=== PATIENT | female | born 1940 | race African-American/Black ===

== ENCOUNTER 2016-11-23 12:35 | Inpatient (IN) | payer MEDICARE, MEDICAID ==
[2016-11-23 13:53] LABS: ANION GAP 13 (5-19); BLOOD UREA NITROGEN 46 mg/dL (7-20); CALCIUM 9.2 mg/dL (8.4-10.2); CARBON DIOXIDE 28 mmol/L (22-30); CHLORIDE 101 mmol/L (98-107); CREATINE KINASE 75 U/L (30-135); CREATININE RESULT 2.27 mg/dL (0.52-1.25); GLUCOSE 190 mg/dL (75-110); POTASSIUM 3.3 mmol/L (3.6-5.0); SODIUM 142.3 mmol/L (137-145)
[2016-11-23 13:58] LABS: HEMATOCRIT 24.8 % (36.0-47.0); HEMOGLOBIN 8.2 g/dL (12.0-15.5); HGB HCT DIFFERENCE -0.2; MEAN CORPUSCULAR HEMOGLOBIN 27.3 pg (27.0-33.4); MEAN CORPUSCULAR HGB CONC 32.9 g/dL (32.0-36.0); MEAN CORPUSCULAR VOLUME 83 fl (80-97); RED BLOOD COUNT 2.99 10^6/uL (3.72-5.28); RED CELL DISTRIBUTION WIDTH 17.9 % (11.5-14.0); WHITE BLOOD COUNT 9.4 10^3/uL (4.0-10.5)
[2016-11-23 14:45] LABS: APPEARANCE,URINE CLEAR; BILIRUBIN,URINE NEGATIVE (NEGATIVE); GLUCOSE, URINE 50 mg/dL (NEGATIVE); KETONES,URINE NEGATIVE (NEGATIVE); LEUKOCYTE ESTERASE,URINE NEGATIVE (NEGATIVE); NITRITE,URINE NEGATIVE (NEGATIVE); PROTEIN,URINE >=500 mg/dL (NEGATIVE); URINE SPECIFIC GRAVITY 1.007; UROBILINOGEN,URINE NEGATIVE mg/dL (<2.0)
[2016-11-23] MEDS ORDERED: NORMAL SALINE 1000 ML 1,000 ML IV PRN (14:50)
[2016-11-23] MEDS ORDERED: (PENDING PHARMACY ID) (Tramadol Hcl/Acetaminophen [Ultracet 37.5 Mg/325 Mg Tablet] 1 TAB) PO PRN (15:32)
[2016-11-23] MEDS ORDERED: (PENDING PHARMACY ID) (Metoprolol Succinate [Toprol Xl 200 Mg Tablet] 200 MG) PO SCH (15:45)
[2016-11-23 15:51] LABS: PROTHROMBIN TIME 13.8 SEC (11.4-15.4)
[2016-11-23 15:52] LABS: PARTIAL THROMBOPLASTIN TIME 35.8 SEC (23.5-35.8)
[2016-11-23 15:59] LABS: LIPASE 483.2 U/L (23-300); MAGNESIUM 2.5 mg/dL (1.6-2.3); PHOSPHORUS 4.6 mg/dL (2.5-4.5)
[2016-11-23 16:12] LABS: CREATINE KINASE MB 0.27 ng/mL (<4.55); TROPONIN I 0.018 ng/mL
[2016-11-23] MEDS ORDERED: AMLODIPINE BESYLATE 10 MG TABLET PO ONE (16:30)
[2016-11-23] MEDS ORDERED: SERTRALINE HCL 50 MG TABLET PO ONE (16:30)
[2016-11-23] MEDS ORDERED: LANSOPRAZOLE 30 MG TAB.RAP.DR PO ONE (16:30)
[2016-11-23] MEDS ORDERED: INSULIN GLARGINE,HUM.REC.ANLOG 300 UNIT/3 ML INSULN.PEN SUBCUT ONE (16:30)
[2016-11-23] MEDS ORDERED: METOPROLOL SUCCINATE 50 MG TAB.SR.24H PO ONE (16:30)
[2016-11-23 16:43] LABS: THYROID STIMULATING HORMONE 1.7 uIU/mL (0.47-4.68)
[2016-11-23 16:54] LABS: URINE BARBITURATES SCREEN NEGATIVE; URINE METHADONE SCREEN NEGATIVE; URINE OPIATES LOW NEGATIVE; URINE PHENCYCLIDINE SCREEN NEGATIVE
[2016-11-23] MEDS: APIXABAN 2.5 MG TABLET PO SCH (17:38)
[2016-11-23] MEDS: NORMAL SALINE 1000 ML 1,000 ML IV PRN (17:39)
--- NOTE | 2016-11-23 18:19 | PDOC H&P ---
History of Present Illness Admission Date/PCP: 11/23/16 12:35 CAROL ANN ACHARYA MD History of Present Illness: CHACHO KHAN is a 76 year old female, She was admitted directly from home because of acute kidney injury. She had blood work yesterday, the serum creatinine was 2.31, the serum creatinine from 10/25/2016 was 2.01, the serum creatinine from 07/18/26 was 1.64 there was progressive decline in the estimated GFR. The estimated GFR from 07/18/2016 was 33,, the estimated GFR from 10/25/2016 was 26, the estimated GFR from 11/22/2016 was 22 because of the rapid decline in the kidney function she was admitted directly to evaluate out for acute kidney injury to rule out any prerenal component or any other condition that could be contributing to the rapid decline kidney function. She has a history of diabetes mellitus with nephropathy. She has other comorbid conditions including CVA, chronic atrial fibrillation. Past Medical History Cardiac Medical History: Reports: Atrial Fibrillation, Coronary Artery Disease, Hyperlipidema, Hypertension Neurological Medical History: Reports: Ischemic CVA Endocrine Medical History: Reports: Diabetes Mellitus Type 2 Psychiatric Medical History: Reports: Depression Past Surgical History Past Surgical History: Reports: Cardiac Catheterization - stent 2003 Denies: Hysterectomy, Pacemaker Social History Smoking Status: Former Smoker Frequency of Alcohol Use: None Hx Recreational Drug Use: No Hx Prescription Drug Abuse: No Family History Parental Family History Reviewed: Yes Children Family History Reviewed: Yes Sibling(s) Family History Reviewed.: Yes Medication/Allergy Home Medications: Apixaban [Eliquis 2.5 mg Tablet] 2.5 mg PO BID 11/23/16 Insulin Aspart [Novolog Flexpen] 8 units SUBCUT Q 11/23/16 Insulin Glargine,Hum.rec.anlog [Lantus Insulin 100 Unit/mL] 15 units SUBCUT QAM 11/23/16 Linaclotide [Linzess] 290 mcg PO DAILY 11/23/16 Pioglitazone HCl [Actos] 30 mg PO DAILY 11/23/16 RX: Amlodipine Besylate [Norvasc 10 mg Tablet] 10 mg PO DAILY 11/23/16 RX: Ergocalciferol (Vitamin D2) [Drisdol 50,000 unit (1.25MG) Capsule] 50,000 unit PO WE@1000 11/23/16 RX: Metoprolol Succinate [Toprol XL 200 mg Tablet] 200 mg PO DAILY 11/23/16 RX: Omeprazole 40 mg PO DAILY 11/23/16 RX: Pravastatin Sodium [Pravachol] 80 mg PO DAILY 11/23/16 RX: Sertraline HCl [Zoloft] 100 mg PO DAILY 11/23/16 Tramadol HCl/Acetaminophen [Ultracet 37.5 mg/325 mg Tablet] 1 tab PO Q6HP PRN Valsartan/Hydrochlorothiazide [Diovan Hct 320-25 mg Tablet] 1 tab PO DAILY 11/23 Allergies/Adverse Reactions: No Known Allergies Allergy (Unverified 04/01/11 18:04) Physical Exam Vital Signs: Temp Pulse Resp BP Pulse Ox 98.0 F 70 18 170/64 H 100 11/23/16 14:25 11/23/16 14:25 11/23/16 14:25 11/23/16 14:25 11/23/16 14:25 Intake & Output 11/22/16 11/23/16 11/24/16 06:59 06:59 06:59 Weight 59.2 kg General appearance: PRESENT: no acute distress Head exam: PRESENT: atraumatic, normocephalic Eye exam: PRESENT: conjunctiva pink, EOMI, PERRLA Ear exam: PRESENT: normal external ear exam Mouth exam: PRESENT: moist, tongue midline Neck exam: PRESENT: full ROM Cardiovascular exam: PRESENT: RRR, +S1, +S2 Vascular exam: PRESENT: normal capillary refill GI/Abdominal exam: PRESENT: normal bowel sounds, soft Rectal exam: PRESENT: deferred Neurological exam: PRESENT: alert, motor sensory deficit Psychiatric exam: PRESENT: appropriate affect, normal mood Skin exam: PRESENT: dry, intact, warm Results Laboratory Results: 11/23/16 13:27 11/23/16 13:27 11/23/16 11/23/16 11/23/16 13:27 13:27 13:27 WBC 9.4 RBC 2.99 L Hgb 8.2 L Hct 24.8 L MCV 83 MCH 27.3 MCHC 32.9 RDW 17.9 H Plt Count 265 Sodium 142.3 Potassium 3.3 L Chloride 101 Carbon Dioxide 28 Anion Gap 13 BUN 46 H Creatinine 2.27 H Est GFR ( Amer) 25 L Est GFR (Non-Af Amer) 21 L Glucose 190 H Calcium 9.2 Phosphorus 4.6 H Magnesium 2.5 H Ammonia Amylase 194 H Lipase 483.2 H TSH Free T4 Urine Color Urine Appearance Urine pH Ur Specific [place] Urine Protein Urine Glucose (UA) Urine Ketones Urine Blood Urine Nitrite Ur Leukocyte Esterase Urine WBC (Auto) Urine RBC (Auto) 11/23/16 11/23/16 11/23/16 13:27 14:26 16:33 WBC RBC Hgb Hct MCV MCH MCHC RDW Plt Count Sodium Potassium Chloride Carbon Dioxide Anion Gap BUN Creatinine Est GFR ( Amer) Est GFR (Non-Af Amer) Glucose Calcium Phosphorus Magnesium Ammonia < 8.7 L Amylase Lipase TSH 1.70 Free T4 1.60 Urine Color STRAW Urine Appearance CLEAR Urine pH 7.0 Ur Specific [place] 1.007 Urine Protein >=500 H Urine Glucose (UA) 50 H Urine Ketones NEGATIVE Urine Blood NEGATIVE Urine Nitrite NEGATIVE Ur Leukocyte Esterase NEGATIVE Urine WBC (Auto) 5 Urine RBC (Auto) 2 11/23/16 11/23/16 11/23/16 13:27 13:27 13:27 Creatine Kinase 75 Cancelled CK-MB (CK-2) 0.27 Troponin I 0.018 Assessment & Plan - Diagnosis (1) Acute kidney injury Is this a current diagnosis for this admission?: YesPlan: 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, there is rapid progressive decline of kidney function, she was admitted to rule out any potential etiology of acute kidney injury, she has significant proteinuria, we need to rule out paraproteinemia especially multiple myeloma (2) Chronic atrial fibrillation Is this a current diagnosis for this admission?: Yes (3) Diabetes mellitus Qualifiers: Diabetes mellitus type: type 2 Diabetes mellitus complication status: with kidney complications Diabetes mellitus complication detail: with chronic kidney disease Diabetes mellitus terminal makeup operator insulin use: with mcc use Chronic kidney disease stage: stage 4 (severe) Qualified Code(s): E11.22 - Type 2 diabetes mellitus with diabetic chronic kidney disease ; N18.4 - Chronic kidney disease, stage 4 (severe); Z79.4 - nursing home (current) use of insulin Is this a current diagnosis for this admission?: Yes
[2016-11-23 18:25] LABS: URINE CREATININE 39.1 mg/dL (15-278)
[2016-11-23 18:37] LABS: URINE PROTEIN 396.4 mg/dL (<12)
[2016-11-23 20:23] LABS: URINE POTASSIUM 13.3 mmol/L (22-164)
[2016-11-23] MEDS: INSULIN LISPRO 100 UNIT/ML 3 ML VIAL SUBCUT SCH (21:13)
[2016-11-23] MEDS: ATORVASTATIN CALCIUM 20 MG TABLET PO SCH (21:13)
[2016-11-23] MEDS ORDERED: INSULIN ASPART 8 UNIT SUBCUT SCH (22:00)
[2016-11-23 22:38] LABS: CREATINE KINASE MB 0.25 ng/mL (<4.55); TROPONIN I 0.022 ng/mL
[2016-11-24 04:23] LABS: ABSOLUTE BASOPHILS # (AUTO) 0.1 10^3/uL (0.0-0.2); ABSOLUTE EOSINOPHILS # (AUTO) 0.2 10^3/uL (0.0-0.6); ABSOLUTE LYMPHOCYTES (AUTO) 2.2 10^3/uL (0.5-4.7); ABSOLUTE MONOCYTES (AUTO) 0.6 10^3/uL (0.1-1.4); ABSOLUTE NEUT (AUTO) 5.3 10^3/uL (1.7-8.2); BASOPHILS % (AUTO) 0.7 % (0-2); EOSINOPHILS % (AUTO) 2.2 % (0-6); HEMATOCRIT 25.8 % (36.0-47.0); HEMOGLOBIN 8.4 g/dL (12.0-15.5); HGB HCT DIFFERENCE -0.6; LYMPHOCYTES % (AUTO) 26.4 % (13-45); MEAN CORPUSCULAR HEMOGLOBIN 27.4 pg (27.0-33.4); MEAN CORPUSCULAR HGB CONC 32.4 g/dL (32.0-36.0); MEAN CORPUSCULAR VOLUME 85 fl (80-97); MONOCYTES % (AUTO) 7.6 % (3-13); RED BLOOD COUNT 3.05 10^6/uL (3.72-5.28); RED CELL DISTRIBUTION WIDTH 17.5 % (11.5-14.0); SEGMENTED NEUTROPHILS % (AUTO) 63.1 % (42-78); WHITE BLOOD COUNT 8.4 10^3/uL (4.0-10.5)
[2016-11-24 04:38] LABS: ALANINE AMINOTRANSFERASE 24 U/L (9-52); ALBUMIN 3.4 g/dL (3.5-5.0); ALKALINE PHOSPHATASE 51 U/L (38-126); ANION GAP 13 (5-19); ASPARTATE AMINO TRANSFERASE 14 U/L (14-36); BILIRUBIN,DIRECT 0.3 mg/dL (0.0-0.4); BILIRUBIN,TOTAL 0.4 mg/dL (0.2-1.3); BLOOD UREA NITROGEN 38 mg/dL (7-20); CALCIUM 8.8 mg/dL (8.4-10.2); CARBON DIOXIDE 26 mmol/L (22-30); CHLORIDE 103 mmol/L (98-107); CREATINE KINASE 70 U/L (30-135); CREATININE RESULT 1.92 mg/dL (0.52-1.25); GLUCOSE 114 mg/dL (75-110); SODIUM 142.1 mmol/L (137-145); TOTAL PROTEIN 6.4 g/dL (6.3-8.2)
[2016-11-24 04:43] LABS: POTASSIUM 2.9 mmol/L (3.6-5.0)
[2016-11-24 04:48] LABS: CREATINE KINASE MB 0.33 ng/mL (<4.55); TROPONIN I 0.022 ng/mL
[2016-11-24] MEDS: POTASSIUM CHLORIDE 20 MEQ/15 ML UDCUP PO SCH ×2 (06:10→10:14)
[2016-11-24] MEDS: INSULIN GLARGINE,HUM.REC.ANLOG 300 UNIT/3 ML INSULN.PEN SUBCUT SCH (07:49)
[2016-11-24] MEDS: LANSOPRAZOLE 30 MG TAB.RAP.DR PO SCH (10:15)
[2016-11-24] MEDS: METOPROLOL SUCCINATE 50 MG TAB.SR.24H PO SCH (10:19)
[2016-11-24] MEDS: AMLODIPINE BESYLATE 10 MG TABLET PO SCH (10:20)
[2016-11-24] MEDS: APIXABAN 2.5 MG TABLET PO SCH ×2 (10:20→17:13)
[2016-11-24] MEDS: SERTRALINE HCL 50 MG TABLET PO SCH (10:21)
--- NOTE | 2016-11-24 12:29 | RADIOLOGY REPORT (SQ) ---
EXAM DESCRIPTION: U/S [employer] COMPLETED DATE/TIME: 11/24/2016 12:16 pm REASON FOR STUDY: ACUTE KIDNEY INJURY COMPARISON: None. TECHNIQUE: Dynamic and static grayscale images acquired of the kidneys and bladder and recorded on P ACS. Additional selected color Doppler and spectral images recorded. LIMITATIONS: None. FINDINGS: RIGHT KIDNEY: 9.2 cm. 1 cm cyst upper pole. No solid or suspicious masses. No hydro nephrosis. No calcifications. LEFT KIDNEY: 9.5 cm. Normal echogenicity. No solid or suspicious masses. No hydronephrosis. No calcifications. BLADDER: No masses. OTHER FINDINGS: No other significant finding. IMPRESSION: No hydronephrosis. No evidence of hematoma. TECHNICAL DOCUMENTATION: JOB ID: [id number] [employer]- All Rights Reserved
[2016-11-24] MEDS ORDERED: POTASSIUM CHLORIDE 20 MEQ/50 ML RTU IV ONE (14:15)
--- NOTE | 2016-11-24 20:17 | PDOC PROGRESS REPORT ---
Subjective Progress Note for:: 11/24/16 Subjective:: She was admitted yesterday because of acute kidney injury superimposed on chronic kidney disease, she has nephrotic range proteinuria, the urine protein electrophoresis is pending, consultation will be requested from nephrology, she is on IV fluid that is slight improvement with a serum creatinine suggesting a prerenal component, Physical Exam Vital Signs: Temp Pulse Resp BP Pulse Ox 98.5 F 65 16 159/69 H 95 11/24/16 15:04 11/24/16 19:00 11/24/16 15:04 11/24/16 15:04 11/24/16 15:04 Intake & Output 11/23/16 11/24/16 11/25/16 06:59 06:59 06:59 Intake Total 2218 2120 Balance 2218 2120 Weight 60.5 kg General appearance: PRESENT: no acute distress Eye exam: PRESENT: PERRLA Respiratory exam: PRESENT: clear to auscultation re Cardiovascular exam: PRESENT: +S1, +S2 GI/Abdominal exam: PRESENT: soft Neurological exam: PRESENT: alert, CN II-XII grossly intact Results Laboratory Results: 11/24/16 03:50 11/24/16 03:50 11/23/16 11/24/16 11/24/16 21:52 03:50 03:50 WBC 8.4 RBC 3.05 L Hgb 8.4 L Hct 25.8 L MCV 85 MCH 27.4 MCHC 32.4 RDW 17.5 H Plt Count 196 Seg Neutrophils % 63.1 Lymphocytes % 26.4 Monocytes % 7.6 Eosinophils % 2.2 Basophils % 0.7 Absolute Neutrophils 5.3 Absolute Lymphocytes 2.2 Absolute Monocytes 0.6 Absolute Eosinophils 0.2 Absolute Basophils 0.1 Sodium 142.1 Potassium 2.9 L* Chloride 103 Carbon Dioxide 26 Anion Gap 13 BUN 38 H Creatinine 1.92 H Est GFR ( Amer) 31 L Est GFR (Non-Af Amer) 26 L Glucose 114 H Calcium 8.8 Total Bilirubin 0.4 AST 14 ALT 24 Alkaline Phosphatase 51 Total Protein Cancelled 6.4 Albumin Cancelled 3.4 L 11/23/16 11/23/16 11/23/16 13:27 13:27 13:27 Creatine Kinase 75 Cancelled CK-MB (CK-2) 0.27 Troponin I 0.018 11/23/16 11/23/1611/24/17 21:40 21:52 03:50 Creatine Kinase 76 CK-MB (CK-2) 0.25 0.33 Troponin I 0.022 0.022 11/24/16 03:50 Creatine Kinase 70 CK-MB (CK-2) Troponin I Impressions: Renal Ultrasound 11/24/16 00:00 IMPRESSION: No hydronephrosis. No evidence of hematoma. Assessment & Plan - Diagnosis (1) Acute kidney injury Is this a current diagnosis for this admission?: Yes (2) Chronic atrial fibrillation Is this a current diagnosis for this admission?: Yes (3) Diabetes mellitus Qualifiers: Diabetes mellitus type: type 2 Diabetes mellitus complication status: with kidney complications Diabetes mellitus complication detail: with chronic kidney disease Diabetes mellitus regional intermodal truck driver insulin use: with regional intermodal truck driver use Chronic kidney disease stage: stage 4 (severe) Qualified Code(s): E11.22 - Type 2 diabetes mellitus with diabetic chronic kidney disease ; N18.1 - Chronic kidney disease, stage 1; Z79.4 - buttermaker (current) use of insulin Is this a current diagnosis for this admission?: Yes (4) Nephrotic range proteinuria Is this a current diagnosis for this admission?: YesPlan: She has nephrotic range proteinuria, the urine protein creatinine ratio is 10 this correlates to 10 g protein in 24 hours
[2016-11-24] MEDS: ATORVASTATIN CALCIUM 20 MG TABLET PO SCH (21:20)
[2016-11-24] MEDS: INSULIN LISPRO 100 UNIT/ML 3 ML VIAL SUBCUT SCH (21:22)
[2016-11-24 21:25] LABS: ALANINE AMINOTRANSFERASE 24 U/L (9-52); ALBUMIN 3.5 g/dL (3.5-5.0); ALKALINE PHOSPHATASE 69 U/L (38-126); ANION GAP 10 (5-19); ASPARTATE AMINO TRANSFERASE 14 U/L (14-36); BILIRUBIN,DIRECT 0.3 mg/dL (0.0-0.4); BILIRUBIN,TOTAL 0.3 mg/dL (0.2-1.3); BLOOD UREA NITROGEN 34 mg/dL (7-20); CALCIUM 8.6 mg/dL (8.4-10.2); CARBON DIOXIDE 27 mmol/L (22-30); CHLORIDE 106 mmol/L (98-107); CREATININE RESULT 1.84 mg/dL (0.52-1.25); GLUCOSE 191 mg/dL (75-110); POTASSIUM 3.4 mmol/L (3.6-5.0); SODIUM 142.5 mmol/L (137-145); TOTAL PROTEIN 6.7 g/dL (6.3-8.2)
[2016-11-25 04:29] LABS: ABSOLUTE EOSINOPHILS # (AUTO) 0.2 10^3/uL (0.0-0.6); ABSOLUTE MONOCYTES (AUTO) 0.8 10^3/uL (0.1-1.4); BASOPHILS % (AUTO) 0.4 % (0-2); EOSINOPHILS % (AUTO) 2.2 % (0-6); HEMATOCRIT 26.5 % (36.0-47.0); HEMOGLOBIN 8.9 g/dL (12.0-15.5); HGB HCT DIFFERENCE 0.2; LYMPHOCYTES % (AUTO) 22.2 % (13-45); MEAN CORPUSCULAR HEMOGLOBIN 27.9 pg (27.0-33.4); MEAN CORPUSCULAR HGB CONC 33.6 g/dL (32.0-36.0); MEAN CORPUSCULAR VOLUME 83 fl (80-97); MONOCYTES % (AUTO) 8.9 % (3-13); RED BLOOD COUNT 3.19 10^6/uL (3.72-5.28); RED CELL DISTRIBUTION WIDTH 17.7 % (11.5-14.0); SEGMENTED NEUTROPHILS % (AUTO) 66.3 % (42-78); WHITE BLOOD COUNT 9.1 10^3/uL (4.0-10.5)
[2016-11-25] MEDS: INSULIN GLARGINE,HUM.REC.ANLOG 300 UNIT/3 ML INSULN.PEN SUBCUT SCH (08:29)
[2016-11-25] MEDS ORDERED: CLONIDINE HCL 0.1 MG TABLET PO ONE (09:00)
[2016-11-25] MEDS: LANSOPRAZOLE 30 MG TAB.RAP.DR PO SCH (09:45)
[2016-11-25] MEDS: APIXABAN 2.5 MG TABLET PO SCH ×2 (09:45→18:08)
[2016-11-25] MEDS: SERTRALINE HCL 50 MG TABLET PO SCH (09:45)
[2016-11-25] MEDS: METOPROLOL SUCCINATE 50 MG TAB.SR.24H PO SCH (10:59)
[2016-11-25] MEDS: AMLODIPINE BESYLATE 10 MG TABLET PO SCH (11:00)
[2016-11-25] MEDS: NORMAL SALINE 1000 ML 1,000 ML IV PRN ×2 (11:28→22:26)
[2016-11-25] MEDS ORDERED: POTASSIUM CHLORIDE 20 MEQ/15 ML UDCUP PO ONE (11:45)
[2016-11-25 15:38] LABS: ALBUMIN UR 61.5 % (.); GAMMA GLOBULIN URINE 10.3 % (.); M-SPIKE % UR Not Observed % (Not Observed)
[2016-11-25] MEDS ORDERED: VALSARTAN 160 MG TABLET PO ONE (18:36)
[2016-11-25 19:16] LABS: ALANINE AMINOTRANSFERASE 16 U/L (9-52); ALBUMIN 3.8 g/dL (3.5-5.0); ALKALINE PHOSPHATASE 58 U/L (38-126); ANION GAP 12 (5-19); ASPARTATE AMINO TRANSFERASE 15 U/L (14-36); BILIRUBIN,DIRECT 0.3 mg/dL (0.0-0.4); BILIRUBIN,TOTAL 0.3 mg/dL (0.2-1.3); BLOOD UREA NITROGEN 26 mg/dL (7-20); CARBON DIOXIDE 26 mmol/L (22-30); CHLORIDE 107 mmol/L (98-107); CREATININE RESULT 1.53 mg/dL (0.52-1.25); GLUCOSE 95 mg/dL (75-110); POTASSIUM 3.6 mmol/L (3.6-5.0); SODIUM 144.5 mmol/L (137-145)
--- NOTE | 2016-11-25 20:40 | PDOC PROGRESS REPORT ---
Subjective Progress Note for:: 11/25/16 Subjective:: She was seen by the bedside, she was admitted because of acute kidney injury, she has nephrotic range proteinuria most likely due to diabetes nephropathy other potential etiology is being evaluated including multiple myeloma. The serum creatinine continues to improve with hydration suggesting a prerenal component, she is on IV fluid, she will continue the same management the blood pressure was elevated earlier today. Physical Exam Vital Signs: Temp Pulse Resp BP Pulse Ox 98.2 F 63 16 180/70 H 95 11/25/16 16:00 11/25/16 16:00 11/25/16 16:00 11/25/16 16:00 11/25/16 16:00 Intake & Output 11/24/16 11/25/16 11/26/16 06:59 06:59 06:59 Intake Total 2218 3420 1540 Output Total 250 Balance 2218 3170 1540 Weight 60.5 kg 61.5 kg General appearance: PRESENT: no acute distress Eye exam: PRESENT: PERRLA Respiratory exam: PRESENT: clear to auscultation re Cardiovascular exam: PRESENT: +S1, +S2 GI/Abdominal exam: PRESENT: soft Neurological exam: PRESENT: alert, CN II-XII grossly intact Results Laboratory Results: 11/25/16 04:10 11/25/16 18:47 11/24/16 11/25/16 11/25/16 20:50 04:10 18:47 WBC 9.1 RBC 3.19 L Hgb 8.9 L Hct 26.5 L MCV 83 MCH 27.9 MCHC 33.6 RDW 17.7 H Plt Count 232 Seg Neutrophils % 66.3 Lymphocytes % 22.2 Monocytes % 8.9 Eosinophils % 2.2 Basophils % 0.4 Absolute Neutrophils 6.0 Absolute Lymphocytes 2.0 Absolute Monocytes 0.8 Absolute Eosinophils 0.2 Absolute Basophils 0.0 Sodium 142.5 144.5 Potassium 3.4 L 3.6 Chloride 106 107 Carbon Dioxide 27 26 Anion Gap 10 12 BUN 34 H 26 H Creatinine 1.84 H 1.53 H Est GFR ( Amer) 32 L 40 L Est GFR (Non-Af Amer) 27 L 33 L Glucose 191 H 95 Calcium 8.6 9.0 Total Bilirubin 0.3 0.3 AST 14 15 ALT 24 16 Alkaline Phosphatase 69 58 Total Protein 6.7 7.0 Albumin 3.5 3.8 11/23/16 14:26 Clean Catch Midstream Urine Culture - Final Mixed Urogenital Aysha 11/23/16 11/23/16 11/23/16 13:27 13:27 13:27 Creatine Kinase 75 Cancelled CK-MB (CK-2) 0.27 Troponin I 0.018 11/23/16 11/23/16 11/24/16 21:40 21:52 03:50 Creatine Kinase 76 CK-MB (CK-2) 0.25 0.33 Troponin I 0.022 0.022 11/24/16 03:50 Creatine Kinase 70 CK-MB (CK-2) Troponin I Impressions: Renal Ultrasound 11/24/16 00:00 IMPRESSION: No hydronephrosis. No evidence of hematoma. Assessment & Plan - Diagnosis (1) Acute kidney injury Is this a current diagnosis for this admission?: Yes (2) Chronic atrial fibrillation Is this a current diagnosis for this admission?: Yes (3) Diabetes mellitus Qualifiers: Diabetes mellitus type: type 2 Diabetes mellitus complication status: with kidney complications Diabetes mellitus complication detail: with chronic kidney disease Diabetes mellitus shelter insulin use: with termite exterminator use Chronic kidney disease stage: stage 4 (severe) Qualified Code(s): E11.22 - Type 2 diabetes mellitus with diabetic chronic kidney disease ; N18.1 - Chronic kidney disease, stage 1; Z79.4 - extermination inspector (current) use of insulin Is this a current diagnosis for this admission?: Yes (4) Nephrotic range proteinuria Is this a current diagnosis for this admission?: Yes - Plan Summary Plan Summary: She will continue IV fluid therapy, serum creatinine continues to improve suggesting a prerenal component, she has nephropathy with nephrotic renal proteinuria partly due to diabetes mellitus, on admission the Diovan was held because of acute kidney injury ,in light of the significant proteinuria and elevated blood pressure the Diovan was started today. consultation also requested from nephrology
[2016-11-25] MEDS: VALSARTAN 160 MG TABLET PO SCH (22:13)
[2016-11-25] MEDS: INSULIN LISPRO 100 UNIT/ML 3 ML VIAL SUBCUT SCH (22:22)
[2016-11-25] MEDS: ATORVASTATIN CALCIUM 20 MG TABLET PO SCH (22:26)
[2016-11-26 06:16] LABS: ABSOLUTE BASOPHILS # (AUTO) 0.1 10^3/uL (0.0-0.2); ABSOLUTE EOSINOPHILS # (AUTO) 0.3 10^3/uL (0.0-0.6); ABSOLUTE LYMPHOCYTES (AUTO) 1.9 10^3/uL (0.5-4.7); ABSOLUTE MONOCYTES (AUTO) 0.8 10^3/uL (0.1-1.4); ABSOLUTE NEUT (AUTO) 7.5 10^3/uL (1.7-8.2); BASOPHILS % (AUTO) 1.1 % (0-2); EOSINOPHILS % (AUTO) 3.1 % (0-6); HEMATOCRIT 29.2 % (36.0-47.0); HEMOGLOBIN 9.5 g/dL (12.0-15.5); HGB HCT DIFFERENCE -0.7; LYMPHOCYTES % (AUTO) 17.7 % (13-45); MEAN CORPUSCULAR HGB CONC 32.5 g/dL (32.0-36.0); MEAN CORPUSCULAR VOLUME 83 fl (80-97); MONOCYTES % (AUTO) 7.3 % (3-13); RED BLOOD COUNT 3.52 10^6/uL (3.72-5.28); RED CELL DISTRIBUTION WIDTH 17.9 % (11.5-14.0); SEGMENTED NEUTROPHILS % (AUTO) 70.8 % (42-78); WHITE BLOOD COUNT 10.6 10^3/uL (4.0-10.5)
[2016-11-26 06:25] LABS: ALANINE AMINOTRANSFERASE 15 U/L (9-52); ALBUMIN 3.9 g/dL (3.5-5.0); ALKALINE PHOSPHATASE 58 U/L (38-126); ANION GAP 10 (5-19); ASPARTATE AMINO TRANSFERASE 18 U/L (14-36); BILIRUBIN,DIRECT 0.3 mg/dL (0.0-0.4); BILIRUBIN,TOTAL 0.3 mg/dL (0.2-1.3); BLOOD UREA NITROGEN 23 mg/dL (7-20); CALCIUM 8.9 mg/dL (8.4-10.2); CARBON DIOXIDE 27 mmol/L (22-30); CHLORIDE 109 mmol/L (98-107); CREATININE RESULT 1.41 mg/dL (0.52-1.25); GLUCOSE 88 mg/dL (75-110); POTASSIUM 3.3 mmol/L (3.6-5.0); SODIUM 145.7 mmol/L (137-145); TOTAL PROTEIN 7.4 g/dL (6.3-8.2)
[2016-11-26] MEDS: CLONIDINE HCL 0.1 MG TABLET PO PRN (08:04)
[2016-11-26] MEDS: NORMAL SALINE 1000 ML 1,000 ML IV PRN ×2 (08:08→19:09)
[2016-11-26] MEDS: INSULIN GLARGINE,HUM.REC.ANLOG 300 UNIT/3 ML INSULN.PEN SUBCUT SCH (09:09)
--- NOTE | 2016-11-26 10:08 | PDOC PROGRESS REPORT ---
Subjective Progress Note for:: 11/26/16 Subjective:: No chest pain or difficulty with breathing. There was recurrent severely elevated blood pressure this morning necessitating administration of Clonidine. No nausea or vomiting. No abdominal pain. No headache or dizziness. Physical Exam Vital Signs: Temp Pulse Resp BP Pulse Ox 97.9 F 68 12 212/78 H 99 11/26/16 07:31 11/26/16 07:31 11/26/16 07:31 11/26/16 07:31 11/26/16 07:31 Intake & Output 11/25/16 11/26/16 11/27/16 06:59 06:59 06:59 Intake Total 3420 1540 Output Total 250 Balance 3170 1540 Weight 61.5 kg 62.5 kg General appearance: PRESENT: no acute distress, cooperative Head exam: PRESENT: atraumatic, normocephalic Eye exam: PRESENT: conjunctiva pink, EOMI, PERRLA. ABSENT: scleral icterus Respiratory exam: PRESENT: clear to auscultation er Cardiovascular exam: PRESENT: RRR, +S1, +S2 GI/Abdominal exam: PRESENT: normal bowel sounds, soft. ABSENT: distended, guarding, mass, organolmegaly, rebound, tenderness Extremities exam: ABSENT: pedal edema Musculoskeletal exam: PRESENT: normal inspection Neurological exam: PRESENT: alert, CN II-XII grossly intact, motor sensory deficit Psychiatric exam: PRESENT: appropriate affect, normal mood. ABSENT: homicidal ideation, suicidal ideation Skin exam: PRESENT: dry, intact, warm. ABSENT: cyanosis, rash Results Laboratory Results: 11/26/16 06:02 11/26/16 06:02 11/25/16 11/26/16 11/26/16 18:47 06:02 06:02 WBC 10.6 H RBC 3.52 L Hgb 9.5 L Hct 29.2 L MCV 83 MCH 27.0 MCHC 32.5 RDW 17.9 H Plt Count 246 Seg Neutrophils % 70.8 Lymphocytes % 17.7 Monocytes % 7.3 Eosinophils % 3.1 Basophils % 1.1 Absolute Neutrophils 7.5 Absolute Lymphocytes 1.9 Absolute Monocytes 0.8 Absolute Eosinophils 0.3 Absolute Basophils 0.1 Sodium 144.5 145.7 H Potassium 3.6 3.3 L Chloride 107 109 H Carbon Dioxide 26 27 Anion Gap 12 10 BUN 26 H 23 H Creatinine 1.53 H 1.41 H Est GFR ( Amer) 40 L 44 L Est GFR (Non-Af Amer) 33 L 36 L Glucose 95 88 Calcium 9.0 8.9 Total Bilirubin 0.3 0.3 AST 15 18 ALT 16 15 Alkaline Phosphatase 58 58 Total Protein 7.0 7.4 Albumin 3.8 3.9 11/23/16 14:26 Clean Catch Midstream Urine Culture - Final Mixed Urogenital Aysha 11/23/16 11/23/16 11/23/16 13:27 13:27 13:27 Creatine Kinase 75 Cancelled CK-MB (CK-2) 0.27 Troponin I 0.018 11/23/16 11/23/16 11/24/16 21:40 21:52 03:50 Creatine Kinase 76 CK-MB (CK-2) 0.25 0.33 Troponin I 0.022 0.022 11/24/16 03:50 Creatine Kinase 70 CK-MB (CK-2) Troponin I Impressions: Renal Ultrasound 11/24/16 00:00 IMPRESSION: No hydronephrosis. No evidence of hematoma. Assessment & Plan - Diagnosis (1) Acute kidney injury Is this a current diagnosis for this admission?: YesPlan: Continue gentle IV Hydration in view of her elevated blood pressure. Follow up on pending labs. (2) Hypertension, uncontrolled Plan: Maintain on current anti HTN medication management. Already max out on Diovan, Toprol XL and Norvasc. Will start on Clonidine 0.1 mg p.o q12 hours and increase as necessary to achieve sbp < 140 and dbp < 90mmHg. Post Clonidine BP was 184/68. (3) Chronic atrial fibrillation Is this a current diagnosis for this admission?: YesPlan: Continue current anticoagulation therapy on Eliquis and rate control with Toprol XL (4) Diabetes mellitus Qualifiers: Diabetes mellitus type: type 2 Diabetes mellitus complication status: with kidney complications Diabetes mellitus complication detail: with chronic kidney disease Diabetes mellitus middle or intermediate school principal insulin use: with middle or intermediate school principal use Chronic kidney disease stage: stage 4 (severe) Qualified Code(s): E11.22 - Type 2 diabetes mellitus with diabetic chronic kidney disease ; N18.1 - Chronic kidney disease, stage 1; Z79.4 - longterm (current) use of insulin Is this a current diagnosis for this admission?: YesPlan: Continue current mediation management. (5) Nephrotic range proteinuria Is this a current diagnosis for this admission?: YesPlan: Continue current medication management. Follow up on nephrology consultation request. - Time Time Spent with patient: 25-34 minutes Medications reviewed and adjusted accordingly: Yes Anticipated discharge: Home Within: Other - Inpatient Certification Based on my medical assessment, after consideration of the patient's comorbidities, presenting symptoms, or acuity I expect that the services needed warrant INPATIENT care.: Yes I certify that my determination is in accordance with my understanding of Medicare's requirements for reasonable and necessary INPATIENT services [42 CFR 412.3e].: Yes Medical Necessity: Need Close Monitoring Due to Risk of Patient Decompensation, Need For Continuous Telemetry Monitoring, Risk of Complication if Not Cared For in Hospital Post Hospital Care: D/C Campus Administrator Documentation - Plan Summary Plan Summary: See covering attending orders.
[2016-11-26] MEDS: VALSARTAN 160 MG TABLET PO SCH ×2 (10:09→21:18)
[2016-11-26] MEDS: METOPROLOL SUCCINATE 50 MG TAB.SR.24H PO SCH (10:10)
[2016-11-26] MEDS: AMLODIPINE BESYLATE 10 MG TABLET PO SCH (10:10)
[2016-11-26] MEDS: SERTRALINE HCL 50 MG TABLET PO SCH (10:10)
[2016-11-26] MEDS: LANSOPRAZOLE 30 MG TAB.RAP.DR PO SCH (10:10)
[2016-11-26] MEDS: APIXABAN 2.5 MG TABLET PO SCH ×2 (10:10→17:56)
[2016-11-26] MEDS ORDERED: CLONIDINE HCL 0.1 MG TABLET PO ONE (17:45)
[2016-11-26] MEDS: ATORVASTATIN CALCIUM 20 MG TABLET PO SCH (21:18)
[2016-11-26] MEDS: INSULIN LISPRO 100 UNIT/ML 3 ML VIAL SUBCUT SCH (21:18)
[2016-11-27] MEDS: CLONIDINE HCL 0.1 MG TABLET PO PRN (00:01)
[2016-11-27] MEDS ORDERED: CLONIDINE HCL 0.1 MG TABLET PO ONE (05:00)
[2016-11-27] MEDS: NORMAL SALINE 1000 ML 1,000 ML IV PRN (06:30)
[2016-11-27] MEDS: VALSARTAN 160 MG TABLET PO SCH ×2 (06:31→21:11)
[2016-11-27] MEDS: METOPROLOL SUCCINATE 50 MG TAB.SR.24H PO SCH (06:32)
[2016-11-27] MEDS: AMLODIPINE BESYLATE 10 MG TABLET PO SCH (06:32)
[2016-11-27] MEDS ORDERED: AMLODIPINE BESYLATE 10 MG TABLET PO ONE (07:00)
[2016-11-27] MEDS ORDERED: METOPROLOL SUCCINATE 50 MG TAB.SR.24H PO ONE (07:00)
[2016-11-27] MEDS ORDERED: VALSARTAN 160 MG TABLET PO ONE (07:00)
[2016-11-27] MEDS: INSULIN GLARGINE,HUM.REC.ANLOG 300 UNIT/3 ML INSULN.PEN SUBCUT SCH (08:06)
[2016-11-27] MEDS ORDERED: CLONIDINE HCL 0.2 MG TABLET PO ONE (09:00)
[2016-11-27] MEDS: APIXABAN 2.5 MG TABLET PO SCH ×2 (09:02→18:38)
[2016-11-27] MEDS: SERTRALINE HCL 50 MG TABLET PO SCH (09:02)
[2016-11-27] MEDS: LANSOPRAZOLE 30 MG TAB.RAP.DR PO SCH (09:02)
--- NOTE | 2016-11-27 12:06 | PDOC PROGRESS REPORT ---
Subjective Progress Note for:: 11/27/16 Subjective:: No chest pain or difficulty with breathing. Her severely elevated blood pressure remain a concern with need for intermittent usage of clonidine since last clinical evaluation. She denied any headache or dizziness. She reported persistently elevated blood pressure at home prior to admission. No chest pain or difficulty with her breathing. Physical Exam Vital Signs: Temp Pulse Resp BP Pulse Ox 97.7 F 57 L 12 128/53 H 100 11/27/16 07:34 11/27/16 10:25 11/27/16 07:34 11/27/16 10:25 11/27/16 07:34 Intake & Output 11/26/16 11/27/16 11/28/16 06:59 06:59 06:59 Intake Total 1540 3120 Balance 1540 3120 Weight 62.5 kg 63.5 kg Physical Exam: General appearance: PRESENT: no acute distress, cooperative Head exam: PRESENT: atraumatic, normocephalic Eye exam: PRESENT: conjunctiva pink, EOMI, PERRLA. ABSENT: scleral icterus Respiratory exam: PRESENT: clear to auscultation re Cardiovascular exam: PRESENT: RRR, +S1, +S2 GI/Abdominal exam: PRESENT: normal bowel sounds, soft. ABSENT: distended, guarding, mass, organomegaly, rebound, tenderness Extremities exam: ABSENT: pedal edema Musculoskeletal exam: PRESENT: normal inspection Neurological exam: PRESENT: alert, CN II-XII grossly intact, motor sensory deficit with right hemiplegia. Psychiatric exam: PRESENT: appropriate affect, normal mood. ABSENT: homicidal ideation, suicidal ideation Skin exam: PRESENT: dry, intact, warm. ABSENT: cyanosis, rash Results Laboratory Results: 11/26/16 06:02 11/26/16 06:02 11/23/16 11/23/16 11/23/16 13:27 13:27 13:27 Creatine Kinase 75 Cancelled CK-MB (CK-2) 0.27 Troponin I 0.018 11/23/16 11/23/16 11/24/16 21:40 21:52 03:50 Creatine Kinase 76 CK-MB (CK-2) 0.25 0.33 Troponin I 0.022 0.022 11/24/16 03:50 Creatine Kinase 70 CK-MB (CK-2) Troponin I Impressions: Renal Ultrasound 11/24/16 00:00 IMPRESSION: No hydronephrosis. No evidence of hematoma. Assessment & Plan - Diagnosis (1) Acute kidney injury Is this a current diagnosis for this admission?: Yes (3) Chronic atrial fibrillation Is this a current diagnosis for this admission?: Yes (4) Diabetes mellitus Qualifiers: Diabetes mellitus type: type 2 Diabetes mellitus complication status: with kidney complications Diabetes mellitus complication detail: with chronic kidney disease Diabetes mellitus penitentiary insulin use: with intermediate designer use Chronic kidney disease stage: stage 4 (severe) Qualified Code(s): E11.22 - Type 2 diabetes mellitus with diabetic chronic kidney disease ; N18.1 - Chronic kidney disease, stage 1; Z79.4 - termite exterminator helper (current) use of insulin Is this a current diagnosis for this admission?: Yes (5) Nephrotic range proteinuria Is this a current diagnosis for this admission?: Yes - Time Time Spent with patient: 25-34 minutes Medications reviewed and adjusted accordingly: Yes Anticipated discharge: Home with Homehealth Within: Other - Inpatient Certification Based on my medical assessment, after consideration of the patient's comorbidities, presenting symptoms, or acuity I expect that the services needed warrant INPATIENT care.: Yes I certify that my determination is in accordance with my understanding of Medicare's requirements for reasonable and necessary INPATIENT services [42 CFR 412.3e].: Yes Medical Necessity: Need Close Monitoring Due to Risk of Patient Decompensation, Need For IV Fluids, Need For Continuous Telemetry Monitoring, Need for IV Antibiotics, Risk of Complication if Not Cared For in Hospital Post Hospital Care: D/C Cruise Coordinator Documentation - Plan Summary Plan Summary: Continue current anti HTN medication management. Start on Clonidine 0.2 mg po q12h hours and maintain on 0.1 mg po [id number] prn for sbp > 140mmHg. Obtain BMP, magnesium, and CBC. Heplock IV access.
[2016-11-27 13:27] LABS: ABSOLUTE BASOPHILS # (AUTO) 0.1 10^3/uL (0.0-0.2); ABSOLUTE EOSINOPHILS # (AUTO) 0.2 10^3/uL (0.0-0.6); ABSOLUTE LYMPHOCYTES (AUTO) 1.8 10^3/uL (0.5-4.7); ABSOLUTE MONOCYTES (AUTO) 0.5 10^3/uL (0.1-1.4); ABSOLUTE NEUT (AUTO) 5.9 10^3/uL (1.7-8.2); BASOPHILS % (AUTO) 0.9 % (0-2); EOSINOPHILS % (AUTO) 2.6 % (0-6); HEMOGLOBIN 8.2 g/dL (12.0-15.5); HGB HCT DIFFERENCE -0.4; LYMPHOCYTES % (AUTO) 21.1 % (13-45); MEAN CORPUSCULAR HEMOGLOBIN 27.8 pg (27.0-33.4); MEAN CORPUSCULAR HGB CONC 32.9 g/dL (32.0-36.0); MEAN CORPUSCULAR VOLUME 84 fl (80-97); MONOCYTES % (AUTO) 6.2 % (3-13); RED BLOOD COUNT 2.96 10^6/uL (3.72-5.28); RED CELL DISTRIBUTION WIDTH 17.1 % (11.5-14.0); SEGMENTED NEUTROPHILS % (AUTO) 69.2 % (42-78); WHITE BLOOD COUNT 8.5 10^3/uL (4.0-10.5)
[2016-11-27 13:39] LABS: ANION GAP 9 (5-19); BLOOD UREA NITROGEN 23 mg/dL (7-20); CALCIUM 8.7 mg/dL (8.4-10.2); CARBON DIOXIDE 24 mmol/L (22-30); CHLORIDE 109 mmol/L (98-107); CREATININE RESULT 1.52 mg/dL (0.52-1.25); GLUCOSE 133 mg/dL (75-110); MAGNESIUM 1.7 mg/dL (1.6-2.3); POTASSIUM 3.6 mmol/L (3.6-5.0); SODIUM 141.5 mmol/L (137-145)
[2016-11-27] MEDS: ATORVASTATIN CALCIUM 20 MG TABLET PO SCH (21:11)
[2016-11-27] MEDS: INSULIN LISPRO 100 UNIT/ML 3 ML VIAL SUBCUT SCH (21:11)
[2016-11-27] MEDS: CLONIDINE HCL 0.2 MG TABLET PO SCH (21:11)
[2016-11-28] MEDS: CLONIDINE HCL 0.1 MG TABLET PO PRN (04:41)
[2016-11-28] MEDS ORDERED: DEXTROSE 40% GEL 15 GM TUBE X 2 PO PRN (09:20)
[2016-11-28] MEDS ORDERED: DEXTROSE 40% GEL 15 GM TUBE PO PRN (09:20)
[2016-11-28] MEDS ORDERED: DEXTROSE 50%-WATER SYRINGE 25 GM/50 ML DOSE IV PRN (09:20)
[2016-11-28] MEDS ORDERED: GLUCAGON,HUMAN RECOMB 1 MG INJ IM PRN (09:20)
[2016-11-28] MEDS ORDERED: DEXTROSE 50%-WATER SYRINGE 12.5 GM/25 ML DOSE IV PRN (09:20)
[2016-11-28] MEDS: SERTRALINE HCL 50 MG TABLET PO SCH (09:30)
[2016-11-28] MEDS: AMLODIPINE BESYLATE 10 MG TABLET PO SCH (09:30)
[2016-11-28] MEDS: VALSARTAN 160 MG TABLET PO SCH ×2 (09:30→21:33)
[2016-11-28] MEDS: CLONIDINE HCL 0.2 MG TABLET PO SCH ×2 (09:30→21:34)
[2016-11-28] MEDS: LANSOPRAZOLE 30 MG TAB.RAP.DR PO SCH (09:31)
[2016-11-28] MEDS: INSULIN GLARGINE,HUM.REC.ANLOG 300 UNIT/3 ML INSULN.PEN SUBCUT SCH (09:31)
[2016-11-28] MEDS: METOPROLOL SUCCINATE 50 MG TAB.SR.24H PO SCH (09:31)
[2016-11-28] MEDS: APIXABAN 2.5 MG TABLET PO SCH ×2 (09:31→17:30)
[2016-11-28] MEDS ORDERED: INSULIN LISPRO 100 UNIT/ML 3 ML VIAL SUBCUT PRN (09:54)
[2016-11-28 14:39] LABS: IMMUNOGLOBULIN A 344 mg/dL (64-422); IMMUNOGLOBULIN G 876 mg/dL (700-1600)
[2016-11-28 14:39] LABS: ALBUMIN 3 3.6 g/dL (2.9-4.4); ALPHA-1-GLOBULIN 0.2 g/dL (0.0-0.4); BETA GLOBULIN 1.4 g/dL (0.7-1.3); GLOBULIN TTL 3.4 g/dL (2.2-3.9); IMMUNOGLOBULIN A 374 mg/dL (64-422); IMMUNOGLOBULIN G 930 mg/dL (700-1600); IMMUNOGLOBULIN M 90 mg/dL (26-217); MONOCLONAL-SPIKE Not Observed g/dL (Not Observed)
[2016-11-28 15:21] LABS: IMMUNOGLOBULIN M 83 mg/dL (26-217)
[2016-11-28 15:38] LABS: ALPHA-1-GLOBULIN 2 0.2 g/dL (0.0-0.4); GAMMA GLOBULIN 0.9 g/dL (0.4-1.8); PROTEIN TOTAL SERUM 6.1 g/dL (6.0-8.5)
[2016-11-28] MEDS ORDERED: INSULIN LISPRO 100 UNIT/ML 3 ML VIAL SUBCUT SCH (16:00)
[2016-11-28 19:16] LABS: ALANINE AMINOTRANSFERASE 17 U/L (9-52); ALBUMIN 3.6 g/dL (3.5-5.0); ALKALINE PHOSPHATASE 67 U/L (38-126); ANION GAP 12 (5-19); ASPARTATE AMINO TRANSFERASE 15 U/L (14-36); BILIRUBIN,DIRECT 0.3 mg/dL (0.0-0.4); BILIRUBIN,TOTAL 0.3 mg/dL (0.2-1.3); BLOOD UREA NITROGEN 29 mg/dL (7-20); CARBON DIOXIDE 24 mmol/L (22-30); CHLORIDE 105 mmol/L (98-107); CREATININE RESULT 1.71 mg/dL (0.52-1.25); GLUCOSE 144 mg/dL (75-110); POTASSIUM 3.4 mmol/L (3.6-5.0); SODIUM 140.7 mmol/L (137-145); TOTAL PROTEIN 6.8 g/dL (6.3-8.2)
[2016-11-28] MEDS ORDERED: NA PHOS,M-B/NA PHOS,DI-BA (ADULT) 133 ML ENEMA PR ONE (19:30)
--- NOTE | 2016-11-28 20:53 | PDOC PROGRESS REPORT ---
Subjective Progress Note for:: 11/28/16 Subjective:: She was seen by the bedside she has diabetic nephropathy the protein electrophoresis was negative for M protein, she has nephrotic range proteinuria , she has had severely elevated blood pressure over the weekend and she required multiple medication to achieve reasonable control of blood pressure. The blood pressure is elevated today I discussed her case with family members the challenge for this patient is to prevent progression of nephropathy to end- stage clearly she has chronic kidney disease which is progressed rapidly with nephrotic range proteinuria. She would need to get the blood pressure below 138 /80 the A1c below 7 contro diet and exercise Physical Exam Vital Signs: Temp Pulse Resp BP Pulse Ox 98.4 F 66 16 165/62 H 100 11/28/16 16:00 11/28/16 19:00 11/28/16 16:00 11/28/16 16:00 11/28/16 16:00 Intake & Output 11/27/16 11/28/16 11/29/16 06:59 06:59 06:59 Intake Total 3120 430 930 Balance 3120 430 930 Weight 63.5 kg 63.4 kg General appearance: PRESENT: no acute distress Eye exam: PRESENT: PERRLA Respiratory exam: PRESENT: clear to auscultation re Cardiovascular exam: PRESENT: +S1, +S2 GI/Abdominal exam: PRESENT: soft Neurological exam: PRESENT: alert Results Laboratory Results: 11/27/16 12:59 11/28/16 18:40 11/23/16 11/28/16 13:27 18:40 Sodium 140.7 Potassium 3.4 L Chloride 105 Carbon Dioxide 24 Anion Gap 12 BUN 29 H Creatinine 1.71 H Est GFR ( Amer) 35 L Est GFR (Non-Af Amer) 29 L Glucose 144 H Calcium 9.0 Total Bilirubin 0.3 AST 15 ALT 17 Alkaline Phosphatase 67 Total Protein 7.0 6.8 Albumin 3.6 3.6 11/23/16 16:33 Blood Blood Culture - Final NO GROWTH IN 5 DAYS 11/23/16 11/23/16 11/23/16 13:27 13:27 13:27 Creatine Kinase 75 Cancelled CK-MB (CK-2) 0.27 Troponin I 0.018 11/23/16 11/23/16 11/24/16 21:40 21:52 03:50 Creatine Kinase 76 CK-MB (CK-2) 0.25 0.33 Troponin I 0.022 0.022 11/24/16 03:50 Creatine Kinase 70 CK-MB (CK-2) Troponin I Impressions: Renal Ultrasound 11/24/16 00:00 IMPRESSION: No hydronephrosis. No evidence of hematoma. Assessment & Plan - Diagnosis (1) Acute kidney injury Is this a current diagnosis for this admission?: Yes (2) Chronic atrial fibrillation Is this a current diagnosis for this admission?: Yes (3) Diabetes mellitus Qualifiers: Diabetes mellitus type: type 2 Diabetes mellitus complication status: with kidney complications Diabetes mellitus complication detail: with chronic kidney disease Diabetes mellitus autobody technician insulin use: with senior care use Chronic kidney disease stage: stage 4 (severe) Qualified Code(s): E11.22 - Type 2 diabetes mellitus with diabetic chronic kidney disease ; N18.1 - Chronic kidney disease, stage 1; Z79.4 - detention (current) use of insulin Is this a current diagnosis for this admission?: Yes (4) Nephrotic range proteinuria Is this a current diagnosis for this admission?: Yes
[2016-11-28] MEDS: ATORVASTATIN CALCIUM 20 MG TABLET PO SCH (21:33)
[2016-11-29] MEDS: INSULIN GLARGINE,HUM.REC.ANLOG 300 UNIT/3 ML INSULN.PEN SUBCUT SCH (10:16)
[2016-11-29] MEDS: CLONIDINE HCL 0.2 MG TABLET PO SCH ×2 (10:18→21:45)
[2016-11-29] MEDS: METOPROLOL SUCCINATE 50 MG TAB.SR.24H PO SCH (10:18)
[2016-11-29] MEDS: LANSOPRAZOLE 30 MG TAB.RAP.DR PO SCH (10:18)
[2016-11-29] MEDS: APIXABAN 2.5 MG TABLET PO SCH ×2 (10:20→17:34)
[2016-11-29] MEDS: VALSARTAN 160 MG TABLET PO SCH ×2 (10:20→21:45)
[2016-11-29] MEDS: SERTRALINE HCL 50 MG TABLET PO SCH (10:20)
[2016-11-29] MEDS: AMLODIPINE BESYLATE 10 MG TABLET PO SCH (10:21)
[2016-11-29 10:57] LABS: ABSOLUTE BASOPHILS # (AUTO) 0.1 10^3/uL (0.0-0.2); ABSOLUTE EOSINOPHILS # (AUTO) 0.1 10^3/uL (0.0-0.6); ABSOLUTE LYMPHOCYTES (AUTO) 1.8 10^3/uL (0.5-4.7); ABSOLUTE MONOCYTES (AUTO) 0.5 10^3/uL (0.1-1.4); ABSOLUTE NEUT (AUTO) 8.3 10^3/uL (1.7-8.2); BASOPHILS % (AUTO) 1.1 % (0-2); EOSINOPHILS % (AUTO) 1.2 % (0-6); HEMATOCRIT 25.9 % (36.0-47.0); HEMOGLOBIN 8.7 g/dL (12.0-15.5); HGB HCT DIFFERENCE 0.2; LYMPHOCYTES % (AUTO) 16.2 % (13-45); MEAN CORPUSCULAR HEMOGLOBIN 27.5 pg (27.0-33.4); MEAN CORPUSCULAR HGB CONC 33.5 g/dL (32.0-36.0); MEAN CORPUSCULAR VOLUME 82 fl (80-97); MONOCYTES % (AUTO) 4.8 % (3-13); RED BLOOD COUNT 3.15 10^6/uL (3.72-5.28); RED CELL DISTRIBUTION WIDTH 17.7 % (11.5-14.0); SEGMENTED NEUTROPHILS % (AUTO) 76.7 % (42-78); WHITE BLOOD COUNT 10.8 10^3/uL (4.0-10.5)
--- NOTE | 2016-11-29 15:03 | PDOC CONSULTATION ---
Consultation Consult Date: 11/28/16 Consult reason:: GEENA/CKD History of Present Illness Admission Date/PCP: 11/23/16 12:35 CAROL ANN ACHARYA MD History of Present Illness: CHACHO KHAN is a 76 year old female, with significant history of diabetes, hypertension, NC in 1993, stroke in 2006, chronic a-fib on blood thinner and CHF. She was admitted directly from home because of acute kidney injury. After getting blood work for her primary care provider her serum creatinine was elevated to 2.31, previous baseline looks to have been around 1.5 to 1.6. She is producing urine and has no difficulties with urination. Complains of no diffuse muscle aches and has no s/s of a kidney stone. She has a history of diabetes mellitus with nephropathy. Diabetes has been well controlled as of late with an A1c of 6.4. Has had diabetes since the late and has had period where it was out of control. Blood pressures have also been elevated and has had a poor history of control. Family admits to their mother not hydrating well. Past Medical History Cardiac Medical History: Reports: Atrial Fibrillation, Coronary Artery Disease, Hyperlipidemia, Hypertension-primary, Myocardial Infarction Pulmonary Medical History: Denies: Asthma, Bronchitis, Chronic Obstructive Pulmonary Disease (COPD), Pneumonia, Tuberculosis Neurological Medical History: Reports: Ischemic CVA, Seizures - 10 years ago Endocrine Medical History: Reports: Diabetes Mellitus Type 2 Renal/ Medical History: Reports: Chronic Kidney Disease Stage III, Proteinuria Musculoskeltal Medical History: Denies: Arthritis Psychiatric Medical History: Reports: Depression Hematology Medical History: Reports Anemia Past Surgical History Past Surgical History: Reports: Cardiac Catheterization - stent 2003 Denies: Hysterectomy, Pacemaker Social History Smoking Status: Former Smoker Frequency of Alcohol Use: None Hx Recreational Drug Use: No Hx Prescription Drug Abuse: No Family History Family History: DM, Hypertension Parental Family History Reviewed: No Children Family History Reviewed: Yes Sibling(s) Family History Reviewed.: No Medication/Allergy Home Medications: Amlodipine Besylate [Norvasc 10 mg Tablet] 10 mg PO DAILY 11/23/16 Apixaban [Eliquis 2.5 mg Tablet] 2.5 mg PO BID 11/23/16 Ergocalciferol (Vitamin D2) [Drisdol 50,000 unit (1.25MG) Capsule] 50,000 unit PO WE@1000 11/23/16 Insulin Aspart [Novolog Flexpen] 8 units SUBCUT QHS 11/23/16 Insulin Glargine,Hum.rec.anlog [Lantus Insulin 100 Unit/mL] 15 units SUBCUT QAM 11/23/16 Linaclotide [Linzess] 290 mcg PO DAILY 11/23/16 Metoprolol Succinate [Toprol XL 200 mg Tablet] 200 mg PO DAILY 11/23/16 Omeprazole 40 mg PO DAILY 11/23/16 Pioglitazone HCl [Actos] 30 mg PO DAILY 11/23/16 Pravastatin Sodium [Pravachol] 80 mg PO DAILY 11/23/16 Sertraline HCl [Zoloft] 100 mg PO DAILY 11/23/16 Tramadol HCl/Acetaminophen [Ultracet 37.5 mg/325 mg Tablet] 1 tab PO Q6HP PRN Valsartan/Hydrochlorothiazide [Diovan Hct 320-25 mg Tablet] 1 tab PO DAILY 11/23 Allergies/Adverse Reactions: No Known Allergies Allergy (Unverified 04/01/11 18:04) Review of Systems Constitutional: PRESENT: weakness. ABSENT: chills, fever(s) Cardiovascular: PRESENT: dyspnea on exertion. ABSENT: chest pain, edema, orthropnea Respiratory: PRESENT: cough, dyspnea. ABSENT: hemoptysis Gastrointestinal: ABSENT: abdominal pain, constipation, diarrhea, hematemesis, hematochezia, nausea, vomiting Genitourinary: PRESENT: nocturia. ABSENT: dysuria, hematuria Neurological: PRESENT: weakness. ABSENT: confusion, dizziness Psychiatric: PRESENT: depression Hematologic/Lymphatic: PRESENT: easy bleeding, easy bruising Physical Exam Vital Signs: Temp Pulse Resp BP Pulse Ox 97.7 F 62 16 124/63 97 11/28/16 11:12 11/28/16 11:12 11/28/16 11:12 11/28/16 11:12 11/28/16 11:12 Intake & Output 11/27/16 11/28/16 11/29/16 06:59 06:59 06:59 Intake Total 3120 430 Balance 3120 430 Weight 63.5 kg 63.4 kg General appearance: PRESENT: no acute distress, well-developed, well-nourished Head exam: PRESENT: atraumatic Eye exam: ABSENT: scleral icterus Mouth exam: PRESENT: neck supple. ABSENT: dry mucosa Neck exam: PRESENT: full ROM. ABSENT: carotid bruit, JVD, lymphadenopathy, thyromegaly Respiratory exam: PRESENT: clear to auscultation re. ABSENT: accessory muscle use, chest wall tenderness, crackles, decreased breath sounds, rales, rhonchi, stridor, tachypnea, wheezes Cardiovascular exam: PRESENT: irregular rhythm, +S1, +S2. ABSENT: tachycardia Vascular exam: PRESENT: normal capillary refill GI/Abdominal exam: PRESENT: normal bowel sounds, soft. ABSENT: ascites, diminished bowel sounds, distended, firm, guarding, hernia, mass, rebound, tenderness Extremities exam: ABSENT: joint swelling, pedal edema Musculoskeletal exam: PRESENT: normal inspection Results Laboratory Results: 11/27/16 12:59 11/27/16 12:59 11/23/16 13:27 Total Protein 7.0 Albumin 3.6 11/23/16 15:55 Blood Blood Culture - Final Staphylococcus Simulans 11/23/16 11/23/16 11/23/16 13:27 13:27 13:27 Creatine Kinase 75 Cancelled CK-MB (CK-2) 0.27 Troponin I 0.018 11/23/16 11/23/16 11/24/16 21:40 21:52 03:50 Creatine Kinase 76 CK-MB (CK-2) 0.25 0.33 Troponin I 0.022 0.022 11/24/16 03:50 Creatine Kinase 70 CK-MB (CK-2) Troponin I Impressions: Renal Ultrasound 11/24/16 00:00 IMPRESSION: No hydronephrosis. No evidence of hematoma. Assessment & Plan - Diagnosis (1) Acute kidney injury Is this a current diagnosis for this admission?: YesPlan: looks to have resolved, back down to baseline. Most likely underlining cause of creatinine elevation was prerenal. (2) Chronic atrial fibrillation Is this a current diagnosis for this admission?: Yes (3) Diabetes mellitus Qualifiers: Diabetes mellitus type: type 2 Diabetes mellitus complication status: with kidney complications Diabetes mellitus complication detail: with chronic kidney disease Diabetes mellitus detention insulin use: with detention use Chronic kidney disease stage: stage 4 (severe) Qualified Code(s): E11.22 - Type 2 diabetes mellitus with diabetic chronic kidney disease ; N18.1 - Chronic kidney disease, stage 1; Z79.4 - USP (current) use of insulin Is this a current diagnosis for this admission?: Yes (4) Hypertension, uncontrolled Plan: continue on current medications (5) Nephrotic range proteinuria Is this a current diagnosis for this admission?: YesPlan: continue on diovan to prevent worsening of proteinuria. Most likely etiology is from her diabetes that the family stated that she has had since the late 80s. (6) Chronic kidney disease (CKD) Qualifiers: Chronic kidney disease stage: stage 3 (moderate) Qualified Code(s): N18.3 - Chronic kidney disease, stage 3 (moderate) Plan: looks to be back at baseline. Will follow up with her in clinic once she is out of hospital.
[2016-11-29] MEDS: CLONIDINE HCL 0.1 MG TABLET PO PRN (16:54)
--- NOTE | 2016-11-29 19:13 | PDOC PROGRESS REPORT ---
Subjective Progress Note for:: 11/29/16 Subjective:: Patient was doing well laying in bed. She had no major complaints. At the time she was resting and her family wasn't not present. Patient denied any s/s of anemia at the time. Physical Exam Vital Signs: Temp Pulse Resp BP Pulse Ox 97.5 F 68 14 193/79 H 100 11/29/16 07:42 11/29/16 14:00 11/29/16 07:42 11/29/16 07:42 11/29/16 07:42 Intake & Output 11/28/16 11/29/16 11/30/16 06:59 06:59 06:59 Intake Total 430 1670 810 Balance 430 1670 810 Weight 63.4 kg 68 kg General appearance: PRESENT: no acute distress, well-developed, well-nourished Head exam: PRESENT: atraumatic Mouth exam: PRESENT: moist, neck supple Neck exam: PRESENT: full ROM. ABSENT: JVD Respiratory exam: PRESENT: clear to auscultation re. ABSENT: accessory muscle use, chest wall tenderness, crackles, rales, rhonchi, tachypnea, wheezes Cardiovascular exam: PRESENT: irregular rhythm, +S1, +S2. ABSENT: tachycardia GI/Abdominal exam: PRESENT: normal bowel sounds, soft. ABSENT: ascites, diminished bowel sounds, distended, firm, guarding, hernia, mass, rebound, tenderness Extremities exam: ABSENT: joint swelling, pedal edema Musculoskeletal exam: PRESENT: normal inspection. ABSENT: deformity Neurological exam: PRESENT: alert, awake, oriented to person, oriented to place , oriented to time Psychiatric exam: PRESENT: normal mood. ABSENT: unusual affect Results Laboratory Results: 11/29/16 04:15 11/28/16 18:40 11/23/16 11/28/16 11/29/16 21:40 18:40 04:15 WBC RBC Hgb Hct MCV MCH MCHC RDW Plt Count Seg Neutrophils % Lymphocytes % Monocytes % Eosinophils % Basophils % Absolute Neutrophils Absolute Lymphocytes Absolute Monocytes Absolute Eosinophils Absolute Basophils Sodium 140.7 Potassium 3.4 L Chloride 105 Carbon Dioxide 24 Anion Gap 12 BUN 29 H Creatinine 1.71 H Est GFR ( Amer) 35 L Est GFR (Non-Af Amer) 29 L Glucose 144 H Calcium 9.0 Iron 34.2 L TIBC 205 L % Saturation 17 Ferritin 230.00 Total Bilirubin 0.3 AST 15 ALT 17 Alkaline Phosphatase 67 Total Protein 6.1 6.8 Albumin 3.0 3.6 11/29/16 04:15 WBC 10.8 H RBC 3.15 L Hgb 8.7 L Hct 25.9 L MCV 82 MCH 27.5 MCHC 33.5 RDW 17.7 H Plt Count 266 Seg Neutrophils % 76.7 Lymphocytes % 16.2 Monocytes % 4.8 Eosinophils % 1.2 Basophils % 1.1 Absolute Neutrophils 8.3 H Absolute Lymphocytes 1.8 Absolute Monocytes 0.5 Absolute Eosinophils 0.1 Absolute Basophils 0.1 Sodium Potassium Chloride Carbon Dioxide Anion Gap BUN Creatinine Est GFR ( Amer) Est GFR (Non-Af Amer) Glucose Calcium Iron TIBC % Saturation Ferritin Total Bilirubin AST ALT Alkaline Phosphatase Total Protein Albumin 11/23/16 16:33 Blood Blood Culture - Final NO GROWTH IN 5 DAYS 11/23/16 11/23/16 11/23/16 13:27 13:27 13:27 Creatine Kinase 75 Cancelled CK-MB (CK-2) 0.27 Troponin I 0.018 11/23/16 11/23/16 11/24/16 21:40 21:52 03:50 Creatine Kinase 76 CK-MB (CK-2) 0.25 0.33 Troponin I 0.022 0.022 11/24/16 03:50 Creatine Kinase 70 CK-MB (CK-2) Troponin I Impressions: Renal Ultrasound 11/24/16 00:00 IMPRESSION: No hydronephrosis. No evidence of hematoma. Assessment & Plan - Diagnosis (1) Acute kidney injury Is this a current diagnosis for this admission?: YesPlan: looks to have resolved, back down to baseline. Encouraged the patient and her family to give her around 32oz of water. (2) Chronic atrial fibrillation Is this a current diagnosis for this admission?: Yes (3) Diabetes mellitus Qualifiers: Diabetes mellitus type: type 2 Diabetes mellitus complication status: with kidney complications Diabetes mellitus complication detail: with chronic kidney disease Diabetes mellitus terminal operations supervisor insulin use: with terminal operations supervisor use Chronic kidney disease stage: stage 4 (severe) Qualified Code(s): E11.22 - Type 2 diabetes mellitus with diabetic chronic kidney disease ; N18.1 - Chronic kidney disease, stage 1; Z79.4 - [facility] (current) use of insulin Is this a current diagnosis for this admission?: Yes (4) Hypertension, uncontrolled Plan: Recommend close home monitoring and adjustments as outpatient (5) Nephrotic range proteinuria Is this a current diagnosis for this admission?: YesPlan: continue on diovan to prevent worsening of proteinuria. Most likely etiology is from her diabetes that the family stated that she has had since the late 80s. (6) Chronic kidney disease (CKD) Qualifiers: Chronic kidney disease stage: stage 3 (moderate) Qualified Code(s): N18.3 - Chronic kidney disease, stage 3 (moderate) Plan: looks to be back at baseline. Will follow up with her in clinic once she is out of hospital.
[2016-11-29] MEDS: ATORVASTATIN CALCIUM 20 MG TABLET PO SCH (21:45)
--- NOTE | 2016-11-29 21:52 | PDOC PROGRESS REPORT ---
Subjective Progress Note for:: 11/29/16 Subjective:: Patient was seen by the bedside, she was seen by the design and sales consultant, the kidney function is improved some ,it seems that she is back to her baseline, she has nephrotic range proteinuria with associated chronic kidney disease from nephropathy, the blood pressure has been very high, she requires multiple medication to achieve reasonable control of the blood pressure, the elevated blood pressure could also be related to the chronic kidney disease. Physical Exam Vital Signs: Temp Pulse Resp BP Pulse Ox 98.1 F 68 18 134/57 H 99 11/29/16 19:43 11/29/16 19:43 11/29/16 19:43 11/29/16 19:43 11/29/16 19:43 Intake & Output 11/28/16 11/29/16 11/30/16 06:59 06:59 06:59 Intake Total 430 1670 815 Balance 430 1670 815 Weight 63.4 kg 68 kg General appearance: PRESENT: no acute distress Eye exam: PRESENT: PERRLA Respiratory exam: PRESENT: clear to auscultation re Cardiovascular exam: PRESENT: +S1, +S2 GI/Abdominal exam: PRESENT: soft Neurological exam: PRESENT: alert Results Laboratory Results: 11/29/16 04:15 11/28/16 18:40 11/23/16 11/29/16 11/29/16 21:40 04:15 04:15 WBC 10.8 H RBC 3.15 L Hgb 8.7 L Hct 25.9 L MCV 82 MCH 27.5 MCHC 33.5 RDW 17.7 H Plt Count 266 Seg Neutrophils % 76.7 Lymphocytes % 16.2 Monocytes % 4.8 Eosinophils % 1.2 Basophils % 1.1 Absolute Neutrophils 8.3 H Absolute Lymphocytes 1.8 Absolute Monocytes 0.5 Absolute Eosinophils 0.1 Absolute Basophils 0.1 Iron 34.2 L TIBC 205 L % Saturation 17 Ferritin 230.00 Total Protein 6.1 Albumin 3.0 11/23/16 11/23/16 11/23/16 13:27 13:27 13:27 Creatine Kinase 75 Cancelled CK-MB (CK-2) 0.27 Troponin I 0.018 11/23/16 11/23/16 11/24/16 21:40 21:52 03:50 Creatine Kinase 76 CK-MB (CK-2) 0.25 0.33 Troponin I 0.022 0.022 11/24/16 03:50 Creatine Kinase 70 CK-MB (CK-2) Troponin I Impressions: Renal Ultrasound 11/24/16 00:00 IMPRESSION: No hydronephrosis. No evidence of hematoma. Assessment & Plan - Diagnosis (1) Acute kidney injury Is this a current diagnosis for this admission?: Yes (2) Chronic atrial fibrillation Is this a current diagnosis for this admission?: Yes (3) Diabetes mellitus Qualifiers: Diabetes mellitus type: type 2 Diabetes mellitus complication status: with kidney complications Diabetes mellitus complication detail: with chronic kidney disease Diabetes mellitus computer terminal operator insulin use: with computer terminal operator use Chronic kidney disease stage: stage 4 (severe) Qualified Code(s): E11.22 - Type 2 diabetes mellitus with diabetic chronic kidney disease ; N18.1 - Chronic kidney disease, stage 1; Z79.4 - termite control servicer (current) use of insulin Is this a current diagnosis for this admission?: Yes (4) Nephrotic range proteinuria Is this a current diagnosis for this admission?: Yes
[2016-11-29 22:54] LABS: ANION GAP 11 (5-19); BLOOD UREA NITROGEN 32 mg/dL (7-20); CALCIUM 8.6 mg/dL (8.4-10.2); CARBON DIOXIDE 24 mmol/L (22-30); CHLORIDE 106 mmol/L (98-107); CREATININE RESULT 1.89 mg/dL (0.52-1.25); GLUCOSE 121 mg/dL (75-110); POTASSIUM 3.2 mmol/L (3.6-5.0); SODIUM 141.1 mmol/L (137-145)
[2016-11-30] MEDS: LANSOPRAZOLE 30 MG TAB.RAP.DR PO SCH (09:04)
[2016-11-30] MEDS: METOPROLOL SUCCINATE 50 MG TAB.SR.24H PO SCH (09:04)
[2016-11-30] MEDS: VALSARTAN 160 MG TABLET PO SCH (09:05)
[2016-11-30] MEDS: CLONIDINE HCL 0.2 MG TABLET PO SCH (09:05)
[2016-11-30] MEDS: SERTRALINE HCL 50 MG TABLET PO SCH (09:05)
[2016-11-30] MEDS: AMLODIPINE BESYLATE 10 MG TABLET PO SCH (09:05)
[2016-11-30] MEDS: APIXABAN 2.5 MG TABLET PO SCH (09:06)
[2016-11-30] MEDS: INSULIN GLARGINE,HUM.REC.ANLOG 300 UNIT/3 ML INSULN.PEN SUBCUT SCH (09:06)
[2016-11-30] MEDS ORDERED: FERROUS SULFATE 325 MG TABLET PO SCH (10:00)
[2016-11-30] MEDS ORDERED: ERGOCALCIFEROL (VITAMIN D2) 50000 UNIT (1.25 MG) CAPSULE PO SCH (10:00)
[2016-11-30] MEDS ORDERED: POTASSIUM CHLORIDE 10 MEQ TABLET.SA PO ONE (13:15)
[2016-11-30 14:49] LABS: ABSOLUTE BASOPHILS # (AUTO) 0.1 10^3/uL (0.0-0.2); ABSOLUTE EOSINOPHILS # (AUTO) 0.2 10^3/uL (0.0-0.6); ABSOLUTE LYMPHOCYTES (AUTO) 1.5 10^3/uL (0.5-4.7); ABSOLUTE MONOCYTES (AUTO) 0.5 10^3/uL (0.1-1.4); ABSOLUTE NEUT (AUTO) 7.5 10^3/uL (1.7-8.2); BASOPHILS % (AUTO) 0.6 % (0-2); EOSINOPHILS % (AUTO) 1.6 % (0-6); HEMATOCRIT 23.7 % (36.0-47.0); HGB HCT DIFFERENCE 0.3; LYMPHOCYTES % (AUTO) 15.3 % (13-45); MEAN CORPUSCULAR HEMOGLOBIN 27.7 pg (27.0-33.4); MEAN CORPUSCULAR HGB CONC 33.9 g/dL (32.0-36.0); MEAN CORPUSCULAR VOLUME 82 fl (80-97); MONOCYTES % (AUTO) 5.3 % (3-13); RED BLOOD COUNT 2.91 10^6/uL (3.72-5.28); RED CELL DISTRIBUTION WIDTH 17.7 % (11.5-14.0); SEGMENTED NEUTROPHILS % (AUTO) 77.2 % (42-78); WHITE BLOOD COUNT 9.8 10^3/uL (4.0-10.5)
[2016-11-30 15:01] LABS: ALANINE AMINOTRANSFERASE 23 U/L (9-52); ALBUMIN 3.1 g/dL (3.5-5.0); ALKALINE PHOSPHATASE 58 U/L (38-126); ANION GAP 12 (5-19); ASPARTATE AMINO TRANSFERASE 17 U/L (14-36); BILIRUBIN,DIRECT 0.3 mg/dL (0.0-0.4); BILIRUBIN,TOTAL 0.3 mg/dL (0.2-1.3); BLOOD UREA NITROGEN 34 mg/dL (7-20); CALCIUM 8.7 mg/dL (8.4-10.2); CARBON DIOXIDE 23 mmol/L (22-30); CHLORIDE 105 mmol/L (98-107); CREATININE RESULT 1.67 mg/dL (0.52-1.25); GLUCOSE 180 mg/dL (75-110); POTASSIUM 3.5 mmol/L (3.6-5.0); SODIUM 140.4 mmol/L (137-145); TOTAL PROTEIN 5.9 g/dL (6.3-8.2)
[2016-11-30 15:58] VITALS: BP 180/70
--- NOTE | 2016-11-30 16:30 | PDOC DISCHARGE SUMMARY ---
General - Admit/Disc Date/PCP Admission Date/Primary Care Provider: 11/23/16 12:35 CAROL ANN ACHARYA MD Discharge Date: 11/30/16 - Discharge Diagnosis (1) Acute kidney injury Is this a current diagnosis for this admission?: Yes (2) Chronic atrial fibrillation Is this a current diagnosis for this admission?: Yes (3) Diabetes mellitus Is this a current diagnosis for this admission?: Yes (4) Nephrotic range proteinuria Is this a current diagnosis for this admission?: Yes (5) Hypertension associated with stage 3 chronic kidney disease due to type 2 diabetes mellitus Is this a current diagnosis for this admission?: Yes - Additional Information Home Medications: Tramadol HCl/Acetaminophen [Ultracet 37.5 mg/325 mg Tablet] 1 tab PO Q6HP PRN Amlodipine Besylate [Norvasc 10 mg Tablet] 10 mg PO DAILY #90 tablet 11/30/16 Apixaban [Eliquis 2.5 mg Tablet] 2.5 mg PO BID #180 tablet 11/30/16 Clonidine HCl [Catapres 0.1 mg Tablet] 0.2 mg PO Q8HP PRN #90 tablet 11/30/16 Ergocalciferol (Vitamin D2) [Drisdol 50,000 unit (1.25MG) Capsule] 50,000 unit PO WE@1000 #12 capsule 11/30/16 Ferrous Sulfate [Feosol 325 mg Tablet] 325 mg PO DAILY #90 tablet 11/30/16 Insulin Aspart [Novolog Flexpen] 8 units SUBCUT QHS #5 ml 11/30/16 Insulin Glargine,Hum.rec.anlog [Lantus Insulin 100 Unit/mL] 15 units SUBCUT QAM #3 insuln.pen 11/30/16 Linaclotide [Linzess] 290 mcg PO DAILY #90 capsule 11/30/16 Metoprolol Succinate [Toprol XL 200 mg Tablet] 200 mg PO DAILY #90 tab.sr.24h Omeprazole 40 mg PO DAILY #90 capsule. 11/30/16 Pioglitazone HCl [Actos] 30 mg PO DAILY #90 tablet 11/30/16 Pravastatin Sodium [Pravachol] 80 mg PO DAILY #90 tablet 11/30/16 Sertraline HCl [Zoloft] 100 mg PO DAILY #90 tablet 11/30/16 Valsartan/Hydrochlorothiazide [Diovan Hct 320-25 mg Tablet] 1 tab PO DAILY #90 tablet 11/30/16 History of Present Illness History of Present Illness: CHACHO KHAN is a 76 year old female, She was admitted directly from home because of acute kidney injury. She had blood work yesterday, the serum creatinine was 2.31, the serum creatinine from 10/25/2016 was 2.01, the serum creatinine from 07/18/26 was 1.64 there was progressive decline in the estimated GFR. The estimated GFR from 07/18/2016 was 33,, the estimated GFR from 10/25/2016 was 26, the estimated GFR from 11/22/2016 was 22 because of the rapid decline in the kidney function she was admitted directly to evaluate out for acute kidney injury to rule out any prerenal component or any other condition that could be contributing to the rapid decline kidney function. She has a history of diabetes mellitus with nephropathy. She has other comorbid conditions including CVA, chronic atrial fibrillation. Hospital Course Hospital Course: Patient was admitted for the management of acute kidney injury, she has background chronic kidney disease .There was worsening serum creatinine she was admitted for evaluation of possible etiology of acute kidney injury. 24-hour urine protein, urine protein creatinine ratio was 10, this correlates with 10 g 24 urine protein. She was also evaluated for possible multiple myeloma, the evaluation was negative for multiple myeloma there was no M spike on electrophoresis of the urine and the serum.She had severely elevated blood pressure requiring multiple medication to achieve a reasonable control of the blood pressure.She was treated with intravenous fluids with improvement of the serum creatinine this suggest that the elevated serum creatinine is not all from chronic kidney disease, there is a prerenal component as well.She was also seen by seafood team member on this admission. There was no indication for acute renal replacement therapy. Physical Exam Vital Signs: Temp Pulse Resp BP Pulse Ox 97.6 F 64 18 180/70 H 99 11/30/16 15:54 11/30/16 15:54 11/30/16 15:54 11/30/16 15:54 11/30/16 15:54 Intake & Output 11/29/16 11/30/16 12/01/16 06:59 06:59 06:59 Intake Total 1670 1055 Balance 1670 1055 Weight 68 kg 67.7 kg General appearance: PRESENT: no acute distress Eye exam: PRESENT: PERRLA Respiratory exam: PRESENT: clear to auscultation re Cardiovascular exam: PRESENT: +S1, +S2 GI/Abdominal exam: PRESENT: soft Neurological exam: PRESENT: alert Results Laboratory Results: 11/30/16 14:40 11/30/16 14:40 11/29/16 11/30/16 11/30/16 22:10 14:40 14:40 WBC 9.8 RBC 2.91 L Hgb 8.0 L Hct 23.7 L MCV 82 MCH 27.7 MCHC 33.9 RDW 17.7 H Plt Count 251 Seg Neutrophils % 77.2 Lymphocytes % 15.3 Monocytes % 5.3 Eosinophils % 1.6 Basophils % 0.6 Absolute Neutrophils 7.5 Absolute Lymphocytes 1.5 Absolute Monocytes 0.5 Absolute Eosinophils 0.2 Absolute Basophils 0.1 Sodium 141.1 140.4 Potassium 3.2 L 3.5 L Chloride 106 105 Carbon Dioxide 24 23 Anion Gap 11 12 BUN 32 H 34 H Creatinine 1.89 H 1.67 H Est GFR ( Amer) 31 L 36 L Est GFR (Non-Af Amer) 26 L 30 L Glucose 121 H 180 H Calcium 8.6 8.7 Total Bilirubin 0.3 AST 17 ALT 23 Alkaline Phosphatase 58 Total Protein 5.9 L Albumin 3.1 L 11/23/16 11/23/16 11/23/16 13:27 13:27 13:27 Creatine Kinase 75 Cancelled CK-MB (CK-2) 0.27 Troponin I 0.018 11/23/16 11/23/16 11/24/16 21:40 21:52 03:50 Creatine Kinase 76 CK-MB (CK-2) 0.25 0.33 Troponin I 0.022 0.022 11/24/16 03:50 Creatine Kinase 70 CK-MB (CK-2) Troponin I Impressions: Renal Ultrasound 11/24/16 00:00 IMPRESSION: No hydronephrosis. No evidence of hematoma.
--- NOTE | 2016-11-30 21:47 | PDOC PROGRESS REPORT ---
Subjective Progress Note for:: 11/30/16 Subjective:: Patient was laying comfortably in her bed eating her lunch. Has no major complaints. Tolerates the PO iron well. No stomach irritation from it. Physical Exam Vital Signs: Temp Pulse Resp BP Pulse Ox 97.6 F 64 18 180/70 H 99 11/30/16 16:27 11/30/16 16:27 11/30/16 16:27 11/30/16 16:27 11/30/16 16:27 Intake & Output 11/29/16 11/30/16 12/01/16 06:59 06:59 06:59 Intake Total 1670 1055 Balance 1670 1055 Weight 68 kg 67.7 kg General appearance: PRESENT: no acute distress, well-developed, well-nourished Head exam: PRESENT: atraumatic, normocephalic Mouth exam: PRESENT: moist Neck exam: PRESENT: full ROM. ABSENT: JVD, tenderness Respiratory exam: PRESENT: clear to auscultation re. ABSENT: accessory muscle use, chest wall tenderness, crackles, rales, rhonchi, tachypnea Cardiovascular exam: PRESENT: irregular rhythm, +S1, +S2. ABSENT: tachycardia GI/Abdominal exam: PRESENT: normal bowel sounds, soft. ABSENT: ascites, diminished bowel sounds, distended, firm, guarding, hernia, mass, rebound, tenderness Extremities exam: PRESENT: full ROM. ABSENT: calf tenderness, clubbing, pedal edema Neurological exam: PRESENT: alert, awake, oriented to person, oriented to place , oriented to time, oriented to situation. ABSENT: motor sensory deficit Psychiatric exam: PRESENT: appropriate affect, normal mood Skin exam: PRESENT: dry, intact, warm. ABSENT: cyanosis Results Laboratory Results: 11/30/16 14:40 11/30/16 14:40 11/29/16 11/30/16 11/30/16 22:10 14:40 14:40 WBC 9.8 RBC 2.91 L Hgb 8.0 L Hct 23.7 L MCV 82 MCH 27.7 MCHC 33.9 RDW 17.7 H Plt Count 251 Seg Neutrophils % 77.2 Lymphocytes % 15.3 Monocytes % 5.3 Eosinophils % 1.6 Basophils % 0.6 Absolute Neutrophils 7.5 Absolute Lymphocytes 1.5 Absolute Monocytes 0.5 Absolute Eosinophils 0.2 Absolute Basophils 0.1 Sodium 141.1 140.4 Potassium 3.2 L 3.5 L Chloride 106 105 Carbon Dioxide 24 23 Anion Gap 11 12 BUN 32 H 34 H Creatinine 1.89 H 1.67 H Est GFR ( Amer) 31 L 36 L Est GFR (Non-Af Amer) 26 L 30 L Glucose 121 H 180 H Calcium 8.6 8.7 Total Bilirubin 0.3 AST 17 ALT 23 Alkaline Phosphatase 58 Total Protein 5.9 L Albumin 3.1 L 11/23/16 11/23/16 11/23/16 13:27 13:27 13:27 Creatine Kinase 75 Cancelled CK-MB (CK-2) 0.27 Troponin I 0.018 11/23/16 11/23/16 11/24/16 21:40 21:52 03:50 Creatine Kinase 76 CK-MB (CK-2) 0.25 0.33 Troponin I 0.022 0.022 11/24/16 03:50 Creatine Kinase 70 CK-MB (CK-2) Troponin I Impressions: Renal Ultrasound 11/24/16 00:00 IMPRESSION: No hydronephrosis. No evidence of hematoma. Assessment & Plan - Diagnosis (1) Acute kidney injury Is this a current diagnosis for this admission?: YesPlan: looks to have resolved, back down to baseline. (2) Chronic atrial fibrillation Is this a current diagnosis for this admission?: Yes (3) Diabetes mellitus Qualifiers: Diabetes mellitus type: type 2 Diabetes mellitus complication status: with kidney complications Diabetes mellitus complication detail: with chronic kidney disease Diabetes mellitus usp insulin use: with exterminator helper use Chronic kidney disease stage: stage 4 (severe) Qualified Code(s): E11.22 - Type 2 diabetes mellitus with diabetic chronic kidney disease ; N18.1 - Chronic kidney disease, stage 1; Z79.4 - exterminator helper (current) use of insulin Is this a current diagnosis for this admission?: Yes (4) Hypertension, uncontrolled Plan: Recommend close home monitoring and adjustments as outpatient (5) Nephrotic range proteinuria Is this a current diagnosis for this admission?: YesPlan: continue on diovan to prevent worsening of proteinuria. Most likely etiology is from her diabetes that the family stated that she has had since the late s. (6) Chronic kidney disease (CKD) Qualifiers: Chronic kidney disease stage: stage 3 (moderate) Qualified Code(s): N18.3 - Chronic kidney disease, stage 3 (moderate) Plan: looks to be back at baseline. Will follow up with her in clinic once she is out of hospital. (7) Hypokalemia Plan: discussed with the family increasing her potassium intake by one more unit a day. Explained several potassium rich foods. Will f/u with as outpatient. (8) Iron deficiency anemia Plan: started her on PO iron qd and is tolerating it well.
== END 2016-11-30 16:55 | disposition home or self-care (01) | DRG 684 ==
LOC: 5 12:35
PROVIDERS: ADMIT Internal Medicine; ATTEND Internal Medicine
DX: N17.9 Acute kidney failure, unspecified (principal); I48.2 Chronic atrial fibrillation; E11.22 Type 2 diabetes mellitus with diabetic chronic kidney disease; I12.9 Hypertensive chronic kidney disease with stage 1 through stage 4 chronic kidney disease, or unspecified chronic kidney disease; N18.4 Chronic kidney disease, stage 4 (severe); I25.10 Atherosclerotic heart disease of native coronary artery without angina pectoris; E78.5 Hyperlipidemia, unspecified; F32.9 Major depressive disorder, single episode, unspecified; D63.1 Anemia in chronic kidney disease; D50.9 Iron deficiency anemia, unspecified; I25.2 Old myocardial infarction; Z86.73 Personal history of transient ischemic attack (TIA), and cerebral infarction without residual deficits; Z79.4 Long term (current) use of insulin; Z79.899 Other long term (current) drug therapy; Z95.5 Presence of coronary angioplasty implant and graft; Z87.891 Personal history of nicotine dependence; Z83.3 Family history of diabetes mellitus; Z82.49 Family history of ischemic heart disease and other diseases of the circulatory system
CPT/HCPCS: 36415; 76775; 80048; 80053; 80307; 81001; 82140; 82150; 82550; 82553; 82570; 82728; 82784; 82962; 83036; 83540; 83550; 83690; 83735; 83874; 84100; 84133; 84156; 84165; 84166; 84300; 84439; 84443; 84484; 85025; 85027; 85610; 85730; 86320; 86335; 87040; 87077; 87086; 87186; J1815; J3480; J3490; J7030

== ENCOUNTER → 2016-12-16 | Outpatient (CLI) | payer MEDICARE, MEDICAID ==
[2016-12-16 12:19] LABS: HEMATOCRIT 24.6 % (36.0-47.0); HGB HCT DIFFERENCE -0.6; MEAN CORPUSCULAR HEMOGLOBIN 27.1 pg (27.0-33.4); MEAN CORPUSCULAR HGB CONC 32.4 g/dL (32.0-36.0); MEAN CORPUSCULAR VOLUME 84 fl (80-97); RED BLOOD COUNT 2.95 10^6/uL (3.72-5.28); RED CELL DISTRIBUTION WIDTH 17.8 % (11.5-14.0); WHITE BLOOD COUNT 8.8 10^3/uL (4.0-10.5)
[2016-12-16 13:00] LABS: ANION GAP 13 (5-19); BLOOD UREA NITROGEN 43 mg/dL (7-20); CALCIUM 9.3 mg/dL (8.4-10.2); CARBON DIOXIDE 26 mmol/L (22-30); CHLORIDE 101 mmol/L (98-107); CREATININE RESULT 2.36 mg/dL (0.52-1.25); GLUCOSE 273 mg/dL (75-110); POTASSIUM 3.6 mmol/L (3.6-5.0); SODIUM 139.6 mmol/L (137-145)
== END ==
LOC: OD 10:51
PROVIDERS: ATTEND Internal Medicine Nephrology
DX: I12.9 Hypertensive chronic kidney disease with stage 1 through stage 4 chronic kidney disease, or unspecified chronic kidney disease (principal); N18.3 Chronic kidney disease, stage 3 (moderate); R80.9 Proteinuria, unspecified; E11.9 Type 2 diabetes mellitus without complications
CPT/HCPCS: 36415; 80048; 85027

== ENCOUNTER 2016-12-25 13:19 | Emergency (ER) | payer MEDICARE, MEDICAID ==
--- NOTE | 2016-12-25 13:43 | ER Document Report ---
HPI - HPI Onset: Last week Onset/Duration: Gradual Quality of pain: Dull Pain Level: 3 Associated Symptoms: None Exacerbated by: Standing, Movement Relieved by: Denies Similar symptoms previously: No Recently seen / treated by doctor: Yes - monday but did not mention this complaint Notes: 76-year-old female with history of CVA. She has resulted right-sided deficits. She is nonambulatory at baseline. Per daughter, patient's been complaining of left knee pain for about 1 week. There is no associated injury. Patient is bedbound at baseline. She has taken some tramadol with some relief. - ROS Systems Reviewed and Negative: Yes All other systems reviewed and negative - CARDIOVASCULAR Cardiovascular: DENIES: Chest pain - REPRODUCTIVE Reproductive: DENIES: : - MUSCULOSKELETAL Musculoskeletal: REPORTS: Extremity pain - DERM Skin Color: Normal Past Medical History - General Information source: Patient - Social History Smoking Status: Never Smoker Chew tobacco use (# tins/day): No Frequency of alcohol use: None Drug Abuse: None Family History: None Patient has suicidal ideation: No Patient has homicidal ideation: No - Past Medical History Cardiac Medical History: Reports: Hx Atrial Fibrillation, Hx Congestive Heart Failure, Hx Coronary Artery Disease, Hx Heart Attack, Hx Hypercholesterolemia, Hx Hypertension Pulmonary Medical History: Denies: Hx Asthma, Hx Bronchitis, Hx COPD, Hx Pneumonia, Hx Tuberculosis Neurological Medical History: Reports: Hx Cerebrovascular Accident - 2006,2007, Hx Seizures - 10 years ago Endocrine Medical History: Reports: Hx Diabetes Mellitus Type 1, Hx Diabetes Mellitus Type 2 Renal/ Medical History: Denies: Hx Peritoneal Dialysis Musculoskeltal Medical History: Denies Hx Arthritis Psychiatric Medical History: Reports: Hx Depression Past Surgical History: Reports: Hx Cardiac Catheterization - stent 2003. Denies : Hx Hysterectomy, Hx Pacemaker - Immunizations Hx Diphtheria, Pertussis, Tetanus Vaccination: Yes Hx Pneumococcal Vaccination: 05/01/09 Vertical Provider Document - CONSTITUTIONAL Agree With Documented VS: Yes Exam Limitations: Physical Impairment - Nonambulatory, wheelchair/bedbound General Appearance: WD/WN, No Apparent Distress - INFECTION CONTROL TRAVEL OUTSIDE OF THE [place] IN LAST 30 DAYS: No - HEENT HEENT: Atraumatic - NECK Neck: Normal Inspection - RESPIRATORY Respiratory: Breath Sounds Normal O2 Sat by Pulse Oximetry: 98 - GI/ABDOMEN Gastrointestinal: Abdomen Soft - MUSCULOSKELETAL/EXTREMETIES Notes: Left knee with painful passive and active range of motion, small effusion, no erythema, no other deformity. Other extremities unremarkable. - NEURO Level of Consciousness: Awake, Alert, Slow to Respond Notes: Baseline mental status per family member with patient Course - Re-evaluation Re-evalutation: 12/25/16 13:42 Patient symptoms are likely arthritic in origin. We will get plain film x-ray to rule out occult fracture. She has tramadol for pain. I would prefer not to prescribe anything stronger due to her age and state of debilitation. Discussed need for possible MRI for better diagnosis if symptoms persist. 12/25/16 14:18 Plain film of left knee is unremarkable. She does have hardware seen in the distal aspect of the femur which appears intact. Results discussed with patient 's family. Recommend to continue tramadol as needed for pain. Also recommend Tylenol in addition to the tramadol. - Vital Signs Vital signs: Temp Pulse Resp BP Pulse Ox 98.4 F 64 20 157/63 H 98 12/25/16 13:21 12/25/16 13:21 12/25/16 13:21 12/25/16 13:21 12/25/16 13:21 - Diagnostic Test Radiology reviewed: Image reviewed - nothing acute seen Discharge - Discharge Clinical Impression: Knee pain Condition: Good Disposition: HOME, SELF-CARE Instructions: Osteoarthritis (OM) Additional Instructions: You can take Tylenol 650 mg every 4 hours in addition to the tramadol for pain. Follow-up with your primary care provider. An MRI may be beneficial if your symptoms do not improve in the next 5-7 days. Return to the emergency department if worse or for any other problems. Prescriptions: Tramadol HCl 50 mg PO QID PRN #20 tablet PRN Reason: pain
[2016-12-25 14:35] VITALS: BP 162/60
--- NOTE | 2016-12-25 14:42 | RADIOLOGY REPORT (SQ) ---
EXAM DESCRIPTION: KNEE LEFT 3 VIEWS COMPLETED DATE/TIME: 12/25/2016 2:33 pm REASON FOR STUDY: pain COMPARISON: None. NUMBER OF VIEWS: Three views. TECHNIQUE: AP, lateral, and sunrise patella radiographic images acquired of the left knee. LIMITATIONS: None. FINDINGS: MINERALIZATION: Osteopenia. BONES: No acute fracture or dislocation. No worrisome bone lesions. JOINT: No effusion. SOFT TISSUES: Vascular calcifications. OTHER: Old femoral fracture status post plate and screw fixation. Moderate osteoarthritic changes in the medial and patellofemoral compartments. IMPRESSION: NO RADIOGRAPHIC EVIDENCE OF ACUTE INJURY. TECHNICAL DOCUMENTATION: JOB ID: [id number] [employer]- All Rights Reserved
== END 2016-12-25 14:33 | disposition home or self-care (01) ==
LOC: ER 13:19
DX: M25.562 Pain in left knee (principal); I48.91 Unspecified atrial fibrillation; I50.9 Heart failure, unspecified; I11.0 Hypertensive heart disease with heart failure; I69.951 Hemiplegia and hemiparesis following unspecified cerebrovascular disease affecting right dominant side; Z74.01 Bed confinement status; I25.2 Old myocardial infarction
CPT/HCPCS: 99283

== ENCOUNTER → 2017-01-23 | Outpatient (CLI) | payer MEDICARE, MEDICAID ==
[2017-01-23 15:12] LABS: ALANINE AMINOTRANSFERASE 22 U/L (9-52); ALBUMIN 4.3 g/dL (3.5-5.0); ALKALINE PHOSPHATASE 79 U/L (38-126); ANION GAP 19 (5-19); ASPARTATE AMINO TRANSFERASE 16 U/L (14-36); BILIRUBIN,DIRECT 0.3 mg/dL (0.0-0.4); BILIRUBIN,TOTAL 0.3 mg/dL (0.2-1.3); BLOOD UREA NITROGEN 39 mg/dL (7-20); CALCIUM 10.1 mg/dL (8.4-10.2); CARBON DIOXIDE 27 mmol/L (22-30); CHLORIDE 98 mmol/L (98-107); CREATININE RESULT 2.13 mg/dL (0.52-1.25); GLUCOSE 267 mg/dL (75-110); POTASSIUM 3.9 mmol/L (3.6-5.0); SODIUM 143.5 mmol/L (137-145); TOTAL PROTEIN 7.8 g/dL (6.3-8.2)
[2017-01-25 16:40] LABS: A/G RATIO 0.9 (0.7-1.7); ALBUMIN 2 3.5 g/dL (2.9-4.4); ALPHA-1-GLOBULIN 2 0.3 g/dL (0.0-0.4); PROTEIN TOTAL SERUM 7.4 g/dL (6.0-8.5)
== END ==
LOC: OD 12:54
PROVIDERS: ATTEND Internal Medicine Nephrology
DX: I12.9 Hypertensive chronic kidney disease with stage 1 through stage 4 chronic kidney disease, or unspecified chronic kidney disease (principal); N18.4 Chronic kidney disease, stage 4 (severe); E11.9 Type 2 diabetes mellitus without complications; R60.9 Edema, unspecified; D64.9 Anemia, unspecified
CPT/HCPCS: 36415; 80053; 82728; 83540; 83550; 84100; 84165

== ENCOUNTER → 2017-03-31 | Outpatient (CLI) | payer MEDICARE, MEDICAID ==
[2017-03-31 13:24] LABS: HEMATOCRIT 30.4 % (36.0-47.0); HEMOGLOBIN 9.9 g/dL (12.0-15.5); HGB HCT DIFFERENCE -0.7; MEAN CORPUSCULAR HEMOGLOBIN 26.6 pg (27.0-33.4); MEAN CORPUSCULAR HGB CONC 32.7 g/dL (32.0-36.0); MEAN CORPUSCULAR VOLUME 81 fl (80-97); RED BLOOD COUNT 3.74 10^6/uL (3.72-5.28); RED CELL DISTRIBUTION WIDTH 19.4 % (11.5-14.0); WHITE BLOOD COUNT 10.2 10^3/uL (4.0-10.5)
[2017-03-31 13:44] LABS: ALANINE AMINOTRANSFERASE 23 U/L (9-52); ALBUMIN 4.1 g/dL (3.5-5.0); ALKALINE PHOSPHATASE 64 U/L (38-126); ANION GAP 17 (5-19); ASPARTATE AMINO TRANSFERASE 16 U/L (14-36); BILIRUBIN,DIRECT 0.2 mg/dL (0.0-0.4); BILIRUBIN,TOTAL 0.3 mg/dL (0.2-1.3); BLOOD UREA NITROGEN 36 mg/dL (7-20); CALCIUM 9.5 mg/dL (8.4-10.2); CARBON DIOXIDE 29 mmol/L (22-30); CHLORIDE 99 mmol/L (98-107); CREATININE RESULT 2.19 mg/dL (0.52-1.25); GLUCOSE 221 mg/dL (75-110); POTASSIUM 3.8 mmol/L (3.6-5.0); SODIUM 144.9 mmol/L (137-145); TOTAL PROTEIN 6.9 g/dL (6.3-8.2)
== END ==
LOC: OD 12:44
PROVIDERS: ATTEND Internal Medicine Nephrology
DX: N18.4 Chronic kidney disease, stage 4 (severe) (principal); D63.1 Anemia in chronic kidney disease; I12.9 Hypertensive chronic kidney disease with stage 1 through stage 4 chronic kidney disease, or unspecified chronic kidney disease; E11.22 Type 2 diabetes mellitus with diabetic chronic kidney disease
CPT/HCPCS: 36415; 80053; 82728; 83540; 83550; 83970; 84100; 84165; 85027

== ENCOUNTER → 2017-06-09 | Outpatient (CLI) | payer MEDICARE, MEDICAID ==
[2017-06-09 12:43] LABS: HEMATOCRIT 31.1 % (36.0-47.0); HEMOGLOBIN 10.2 g/dL (12.0-15.5); MEAN CORPUSCULAR HEMOGLOBIN 27.1 pg (27.0-33.4); MEAN CORPUSCULAR HGB CONC 32.8 g/dL (32.0-36.0); MEAN CORPUSCULAR VOLUME 83 fl (80-97); PLATELET COUNT 247 10^3/uL (150-450); RED BLOOD COUNT 3.76 10^6/uL (3.72-5.28); RED CELL DISTRIBUTION WIDTH 17.3 % (11.5-14.0); WHITE BLOOD COUNT 8.7 10^3/uL (4.0-10.5)
[2017-06-09 13:05] LABS: ANION GAP 12 (5-19); BLOOD UREA NITROGEN 33 mg/dL (7-20); CALCIUM 9.8 mg/dL (8.4-10.2); CARBON DIOXIDE 33 mmol/L (22-30); CHLORIDE 99 mmol/L (98-107); GLUCOSE 236 mg/dL (75-110); IRON(TIBC) 49.4 ug/dL (37-170); PHOSPHORUS 4.3 mg/dL (2.5-4.5); POTASSIUM 3.2 mmol/L (3.6-5.0); SODIUM 143.8 mmol/L (137-145)
== END ==
LOC: OD 12:14
PROVIDERS: ATTEND Internal Medicine Nephrology
DX: E11.22 Type 2 diabetes mellitus with diabetic chronic kidney disease (principal); I12.9 Hypertensive chronic kidney disease with stage 1 through stage 4 chronic kidney disease, or unspecified chronic kidney disease; N18.4 Chronic kidney disease, stage 4 (severe); D64.9 Anemia, unspecified; R80.9 Proteinuria, unspecified
CPT/HCPCS: 36415; 80048; 82728; 83540; 83550; 83970; 84100; 85027

== ENCOUNTER → 2017-11-22 | Outpatient (CLI) | payer MEDICARE, MEDICAID ==
[2017-11-22 13:04] LABS: HEMATOCRIT 27.3 % (36.0-47.0); HEMOGLOBIN 9.2 g/dL (12.0-15.5); MEAN CORPUSCULAR HEMOGLOBIN 28.4 pg (27.0-33.4); MEAN CORPUSCULAR HGB CONC 33.7 g/dL (32.0-36.0); MEAN CORPUSCULAR VOLUME 84 fl (80-97); PLATELET COUNT 254 10^3/uL (150-450); RED BLOOD COUNT 3.23 10^6/uL (3.72-5.28); RED CELL DISTRIBUTION WIDTH 16.7 % (11.5-14.0); WHITE BLOOD COUNT 10.1 10^3/uL (4.0-10.5)
[2017-11-22 13:12] LABS: APPEARANCE,URINE CLEAR; BILIRUBIN,URINE NEGATIVE (NEGATIVE); COLOR,URINE STRAW; GLUCOSE, URINE NEGATIVE (NEGATIVE); KETONES,URINE NEGATIVE (NEGATIVE); LEUKOCYTE ESTERASE,URINE NEGATIVE (NEGATIVE); NITRITE,URINE NEGATIVE (NEGATIVE); PROTEIN,URINE >=500 mg/dL (NEGATIVE); URINE SPECIFIC GRAVITY 1.009; UROBILINOGEN,URINE NEGATIVE mg/dL (<2.0)
[2017-11-22 13:24] LABS: ANION GAP 15 (5-19); BLOOD UREA NITROGEN 43 mg/dL (7-20); CALCIUM 9.5 mg/dL (8.4-10.2); CARBON DIOXIDE 33 mmol/L (22-30); CHLORIDE 97 mmol/L (98-107); GLUCOSE 194 mg/dL (75-110); POTASSIUM 3.4 mmol/L (3.6-5.0); SODIUM 145.3 mmol/L (137-145)
== END ==
LOC: OD 12:30
PROVIDERS: ATTEND Internal Medicine Nephrology
DX: I12.9 Hypertensive chronic kidney disease with stage 1 through stage 4 chronic kidney disease, or unspecified chronic kidney disease (principal); N18.4 Chronic kidney disease, stage 4 (severe); D64.9 Anemia, unspecified; E11.9 Type 2 diabetes mellitus without complications
CPT/HCPCS: 36415; 80048; 81001; 85027

== ENCOUNTER → 2017-11-29 | Outpatient (CLI) | payer MEDICARE, MEDICAID ==
[2017-11-29 17:19] LABS: IRON(TIBC) 34.7 ug/dL (37-170); POTASSIUM 3.4 mmol/L (3.6-5.0)
== END ==
LOC: OD 15:46
PROVIDERS: ATTEND Physician Assistant Medical
DX: D64.9 Anemia, unspecified (principal); E87.6 Hypokalemia; N18.4 Chronic kidney disease, stage 4 (severe)
CPT/HCPCS: 36415; 82728; 83540; 83550; 84132

== ENCOUNTER → 2017-12-28 | Outpatient (CLI) | payer MEDICARE, MEDICAID ==
[2017-12-28 14:29] LABS: APPEARANCE,URINE CLEAR; BILIRUBIN,URINE NEGATIVE (NEGATIVE); COLOR,URINE YELLOW; GLUCOSE, URINE NEGATIVE (NEGATIVE); KETONES,URINE NEGATIVE (NEGATIVE); LEUKOCYTE ESTERASE,URINE NEGATIVE (NEGATIVE); NITRITE,URINE NEGATIVE (NEGATIVE); PROTEIN,URINE >=500 mg/dL (NEGATIVE); URINE SPECIFIC GRAVITY 1.011; UROBILINOGEN,URINE NEGATIVE mg/dL (<2.0)
[2017-12-28 15:02] LABS: HEMATOCRIT 27.5 % (36.0-47.0); HEMOGLOBIN 9.1 g/dL (12.0-15.5); MEAN CORPUSCULAR HEMOGLOBIN 28.2 pg (27.0-33.4); MEAN CORPUSCULAR HGB CONC 33.2 g/dL (32.0-36.0); MEAN CORPUSCULAR VOLUME 85 fl (80-97); PLATELET COUNT 218 10^3/uL (150-450); RED BLOOD COUNT 3.24 10^6/uL (3.72-5.28); RED CELL DISTRIBUTION WIDTH 16.1 % (11.5-14.0); WHITE BLOOD COUNT 7.5 10^3/uL (4.0-10.5)
[2017-12-28 15:22] LABS: ANION GAP 17 (5-19); BLOOD UREA NITROGEN 70 mg/dL (7-20); CALCIUM 9.8 mg/dL (8.4-10.2); CARBON DIOXIDE 33 mmol/L (22-30); CHLORIDE 93 mmol/L (98-107); GLUCOSE 142 mg/dL (75-110); POTASSIUM 3.7 mmol/L (3.6-5.0); SODIUM 143.4 mmol/L (137-145)
[2017-12-29 17:56] LABS: IRON(TIBC) 33.3 ug/dL (37-170)
== END ==
LOC: OD 13:44
PROVIDERS: ATTEND Physician Assistant Medical
DX: N18.4 Chronic kidney disease, stage 4 (severe) (principal); D64.9 Anemia, unspecified; E87.6 Hypokalemia; E11.9 Type 2 diabetes mellitus without complications
CPT/HCPCS: 36415; 80048; 81001; 82728; 83540; 83550; 85027

== ENCOUNTER 2018-01-09 11:15 | Outpatient (CLI) | payer MEDICARE, MEDICAID ==
[~2018-01-09 11:15] MED LIST: FERRIC CARBOXYMALTOSE 750 MG in NORMAL SALINE 250 ML IV PRN
[2018-01-09 12:03] VITALS: BP 181/59
== END 2018-01-09 13:00 | disposition home or self-care (01) ==
LOC: II 11:15 → 5TH 12:34 → II 13:00
PROVIDERS: ATTEND Internal Medicine Nephrology
PROC: 3E033GC Introduction of Other Therapeutic Substance into Peripheral Vein, Percutaneous Approach (ICD-10-PCS; principal; 2018-01-09)
DX: D50.8 Other iron deficiency anemias (principal)
CPT/HCPCS: 96367; J7050; J1439; 96365

== ENCOUNTER → 2018-03-02 | Outpatient (CLI) | payer MEDICARE, MEDICAID ==
[2018-03-02 14:18] LABS: HEMATOCRIT 29.7 % (36.0-47.0); HEMOGLOBIN 10.2 g/dL (12.0-15.5); MEAN CORPUSCULAR HEMOGLOBIN 29.8 pg (27.0-33.4); MEAN CORPUSCULAR HGB CONC 34.5 g/dL (32.0-36.0); MEAN CORPUSCULAR VOLUME 87 fl (80-97); PLATELET COUNT 191 10^3/uL (150-450); RED BLOOD COUNT 3.43 10^6/uL (3.72-5.28); RED CELL DISTRIBUTION WIDTH 16.6 % (11.5-14.0); WHITE BLOOD COUNT 9.2 10^3/uL (4.0-10.5)
[2018-03-02 14:25] LABS: APPEARANCE,URINE CLOUDY; BILIRUBIN,URINE NEGATIVE (NEGATIVE); COLOR,URINE YELLOW; GLUCOSE, URINE NEGATIVE (NEGATIVE); KETONES,URINE NEGATIVE (NEGATIVE); LEUKOCYTE ESTERASE,URINE MODERATE (NEGATIVE); NITRITE,URINE NEGATIVE (NEGATIVE); PROTEIN,URINE 100 mg/dL (NEGATIVE); UROBILINOGEN,URINE NEGATIVE mg/dL (<2.0)
[2018-03-02 15:28] LABS: ANION GAP 13 (5-19); BLOOD UREA NITROGEN 59 mg/dL (7-20); CARBON DIOXIDE 34 mmol/L (22-30); CHLORIDE 97 mmol/L (98-107); GLUCOSE 163 mg/dL (75-110); IRON(TIBC) 45.5 ug/dL (37-170); POTASSIUM 3.4 mmol/L (3.6-5.0); SODIUM 143.8 mmol/L (137-145)
== END ==
LOC: OD 13:30
PROVIDERS: ATTEND Physician Assistant Medical
DX: E11.22 Type 2 diabetes mellitus with diabetic chronic kidney disease (principal); N18.4 Chronic kidney disease, stage 4 (severe); E87.6 Hypokalemia; D64.9 Anemia, unspecified
CPT/HCPCS: 36415; 80048; 81001; 82728; 83540; 83550; 85027

== ENCOUNTER 2019-02-20 10:35 | Emergency (ER) | payer MEDICARE, MEDICAID ==
--- NOTE | 2019-02-20 11:06 | ER Document Report ---
ED Medical Screen (RME) - General Chief Complaint: Abscess Stated Complaint: ABSCESS/BUTTOCKS Time Seen by Provider: 02/20/19 10:48 Primary Care Provider: CAROL ANN ACHARYA MD [Primary Care Provider] - Follow up as needed Notes: Patient is nonambulatory and daughter helps with transfers. Patient recently went on a car ride to [place] and back. Daughter is concerned that the long car ride worsened her decubitus ulcer to the sacrum. I have greeted and performed a rapid initial assessment of this patient. A comprehensive ED assessment and evaluation of the patient, analysis of test results and completion of the medical decision making process will be conducted by additional ED providers. TRAVEL OUTSIDE OF THE [place] IN LAST 30 DAYS: No - Related Data Allergies/Adverse Reactions: No Known Allergies Allergy (Unverified 04/01/11 18:04) Past Medical History - Past Medical History Cardiac Medical History: Reports: Hx Atrial Fibrillation, Hx Congestive Heart Failure, Hx Coronary Artery Disease, Hx Heart Attack, Hx Hypercholesterolemia, Hx Hypertension Pulmonary Medical History: Denies: Hx Asthma, Hx Bronchitis, Hx COPD, Hx Pneumonia, Hx Tuberculosis Neurological Medical History: Reports: Hx Cerebrovascular Accident - 2006,2007, Hx Seizures - 10 years ago Endocrine Medical History: Reports: Hx Diabetes Mellitus Type 1, Hx Diabetes Mellitus Type 2 Renal/ Medical History: Denies: Hx Peritoneal Dialysis Musculoskeltal Medical History: Denies Hx Arthritis Psychiatric Medical History: Reports: Hx Depression Past Surgical History: Reports: Hx Cardiac Catheterization - stent 2003. Denies: Hx Hysterectomy, Hx Pacemaker - Immunizations Hx Diphtheria, Pertussis, Tetanus Vaccination: Yes Physical Exam - General General appearance: Appears well, Alert Notes: stage III decubitus ulcer to sacrum Doctor's Discharge - Discharge Referrals: CAROL ANN ACHARYA MD [Primary Care Provider] - Follow up as needed
--- NOTE | 2019-02-20 13:52 | ER Document Report ---
ED Skin Rash/Insect Bite/Abscs - General Chief Complaint: Skin Problem Stated Complaint: ABSCESS/BUTTOCKS Time Seen by Provider: 02/20/19 10:48 Primary Care Provider: CAROL ANN ACHARYA MD [Primary Care Provider] - Follow up as needed Notes: 79-year-old nonambulatory female with insulin-dependent diabetes mellitus, hypertension, coronary artery disease presents to the emergency department with daughter with chief complaint of a pressure injury on her sacrum. Daughter noticed it about a week and a half ago and when she slid her to change earlier today she noticed that some skin sloughed off prompting her to get seen. Patient recently just got back from a long round trip car ride from [place] and daughter is concerned that may have worsened the condition. Denies fevers or chills, denies nausea or vomiting, denies any numbness or tingling in her extremities, does complain of pain TRAVEL OUTSIDE OF THE [place] IN LAST 30 DAYS: No - Related Data Allergies/Adverse Reactions: No Known Allergies Allergy (Unverified 04/01/11 18:04) Past Medical History - Social History Smoking Status: Never Smoker Frequency of alcohol use: None Drug Abuse: None Family History: None Patient has suicidal ideation: No Patient has homicidal ideation: No - Past Medical History Cardiac Medical History: Reports: Hx Atrial Fibrillation, Hx Congestive Heart Failure, Hx Coronary Artery Disease, Hx Heart Attack, Hx Hypercholesterolemia, Hx Hypertension Pulmonary Medical History: Denies: Hx Asthma, Hx Bronchitis, Hx COPD, Hx Pneumonia, Hx Tuberculosis Neurological Medical History: Reports: Hx Cerebrovascular Accident - 2006,2008, Hx Seizures - 10 years ago Endocrine Medical History: Reports: Hx Diabetes Mellitus Type 1, Hx Diabetes Mellitus Type 2 Renal/ Medical History: Denies: Hx Peritoneal Dialysis Musculoskeletal Medical History: Denies Hx Arthritis Psychiatric Medical History: Reports: Hx Depression Past Surgical History: Reports: Hx Cardiac Catheterization - stent 2003. Denies: Hx Hysterectomy, Hx Pacemaker - Immunizations Hx Diphtheria, Pertussis, Tetanus Vaccination: Yes Hx Pneumococcal Vaccination: 05/01/09 Review of Systems - Review of Systems Constitutional: See HPI EENT: No symptoms reported Cardiovascular: See HPI Respiratory: See HPI Gastrointestinal: No symptoms reported Genitourinary: No symptoms reported Female Genitourinary: No symptoms reported Musculoskeletal: No symptoms reported Skin: See HPI Hematologic/Lymphatic: No symptoms reported Neurological/Psychological: See HPI Physical Exam - Notes Notes: PHYSICAL EXAMINATION: Reviewed vital signs and charting by RN GENERAL: Alert, cachectic. No acute distress. HEAD: Normocephalic, atraumatic. EYES: Pupils equal and round. Extraocular movements intact. ENT: Oral mucosa moist, tongue midline. NECK: Full range of motion. Trachea midline. LUNGS: Clear to auscultation bilaterally, no wheezes, rales, or rhonchi. No respiratory distress. HEART: Regular rate and rhythm. No murmur ABDOMEN: soft, non-tender. No distention. Bowel sounds present EXTREMITIES: Moves all 4 extremities spontaneously. No edema, No cyanosis. PSYCH: Normal affect, normal mood. SKIN: Warm, dry, normal turgor. Sacral pressure injury approximately 2 inches x 4 inches at the gluteal cleft consistent with a stage II pressure injury with some minor sloughing of the epithelial layer of the skin, no subcutaneous tissue visualized, is still blanchable with some erythema Course - Re-evaluation Re-evalutation: 02/20/19 13:50 In no acute distress. I did call the wound clinic for consultation and their recommendation until she can get seen by them is to apply a thick barrier cream with zinc oxide and to ensure that the patient stays off of the wound. I did ensure that she will be able to get follow-up through them but it may be 1 week or so and I wanted to ensure that we have proper wound care in the interim. I explained this to the patient's daughter and she understands fully and does understand the return precautions. At this time patient is stable for discharge. Discharge - Discharge Clinical Impression: Pressure injury of sacral region, stage 2 Condition: Good Disposition: HOME, SELF-CARE Additional Instructions: You were seen in the emergency department this afternoon for a sacral pressure injury. It appears that it is a stage II. The old terminology are called pressure ulcers. I have contacted the wound care clinic and am going to give you referral. They will contact you once they receive your information. You can also follow-up with them and call them in the morning. Their recommendation is to apply a thick barrier cream with zinc oxide. Examples are Desitin and/or Endit, both of which can be purchased at [employer]. Please use that as needed to protect the wound and ensure consistent turning as you are doing. These return to the emergency department if you develop fever or chills, severe redness or worsening redness around the site, you lose feeling in your legs, the wound deteriorates worse, or you have any other concerning symptoms. Referrals: CAROL ANN ACHARYA MD [Primary Care Provider] - Follow up as needed
[2019-02-20] MEDS ORDERED: ZINC OXIDE 20% OINTMENT 28.35 GM TP ONE (14:04)
[2019-02-20 14:41] VITALS: BP 136/54
== END 2019-02-20 14:42 | disposition home or self-care (01) ==
LOC: ER 10:35
DX: L89.152 Pressure ulcer of sacral region, stage 2 (principal); E11.9 Type 2 diabetes mellitus without complications; I25.10 Atherosclerotic heart disease of native coronary artery without angina pectoris; I10 Essential (primary) hypertension; Z95.5 Presence of coronary angioplasty implant and graft
CPT/HCPCS: 99282; J3490

== ENCOUNTER 2019-04-22 11:21 | Emergency (ER) | payer MEDICARE, MEDICAID ==
--- NOTE | 2019-04-22 11:35 | ER Document Report ---
ED Medical Screen (RME) - General Stated Complaint: POSSIBLE BLEEDING FROM RECTUM/GENITAL AREA Time Seen by Provider: 04/22/19 11:24 Primary Care Provider: CAROL ANN ACHARYA MD [Primary Care Provider] - Follow up as needed Information source: Relative Notes: Patient presents with daughters who state that she has had bleeding for the past 2 days. Family is uncertain where the blood is coming from. Family does not know if it is from her urine, vaginally or from the rectum. Patient denies any pain or lightheadedness. Family states that she does not eat well and has been placed under hospice. One family member at bedside prefers not to have anything discussed and would prefer provider only access information via the previous ER visit. Family seem to not want patient to know that she is currently in hosp ice. Patient has a history of dementia and is unable to give meaningful history. I have greeted and performed a rapid initial assessment of this patient. A comprehensive ED assessment and evaluation of the patient, analysis of test results and completion of the medical decision making process will be conducted by additional ED providers. TRAVEL OUTSIDE OF THE [place] IN LAST 30 DAYS: No - Related Data Allergies/Adverse Reactions: No Known Allergies Allergy (Verified 04/22/19 11:24) Past Medical History - Past Medical History Cardiac Medical History: Reports: Hx Atrial Fibrillation, Hx Congestive Heart Failure, Hx Coronary Artery Disease, Hx Heart Attack, Hx Hypercholesterolemia, Hx Hypertension Pulmonary Medical History: Denies: Hx Asthma, Hx Bronchitis, Hx COPD, Hx Pneumonia, Hx Tuberculosis Neurological Medical History: Reports: Hx Cerebrovascular Accident - 2006,2007, Hx Seizures - 10 years ago Endocrine Medical History: Reports: Hx Diabetes Mellitus Type 1, Hx Diabetes Mellitus Type 2 Renal/ Medical History: Denies: Hx Peritoneal Dialysis Musculoskeltal Medical History: Denies Hx Arthritis Psychiatric Medical History: Reports: Hx Depression Past Surgical History: Reports: Hx Cardiac Catheterization - stent 2003. Denies: Hx Hysterectomy, Hx Pacemaker - Immunizations Hx Diphtheria, Pertussis, Tetanus Vaccination: Yes Physical Exam - Vital signs Vitals: Temp Pulse Resp BP Pulse Ox 98.3 F 88 16 164/71 H 100 04/22/19 11:27 04/22/19 11:27 04/22/19 11:27 04/22/19 11:27 04/22/19 11:27 - General General appearance: Alert Notes: Patient pale, poor eye contact - Respiratory Respiratory status: No respiratory distress Course - Vital Signs Vital signs: Temp Pulse Resp BP Pulse Ox 98.3 F 88 16 164/71 H 100 04/22/19 11:27 04/22/19 11:27 04/22/19 11:27 04/22/19 11:27 04/22/19 11:27 Doctor's Discharge - Discharge Referrals: CAROL ANN ACHARYA MD [Primary Care Provider] - Follow up as needed
[2019-04-22 12:10] LABS: ABSOLUTE BASOPHILS # (AUTO) 0.1 10^3/uL (0.0-0.2); ABSOLUTE EOSINOPHILS # (AUTO) 0.2 10^3/uL (0.0-0.6); ABSOLUTE LYMPHOCYTES (AUTO) 1.1 10^3/uL (0.5-4.7); ABSOLUTE MONOCYTES (AUTO) 0.7 10^3/uL (0.1-1.4); ABSOLUTE NEUT (AUTO) 7.9 10^3/uL (1.7-8.2); BASOPHILS % (AUTO) 0.6 % (0-2); EOSINOPHILS % (AUTO) 1.7 % (0-6); HEMATOCRIT 27.3 % (36.0-47.0); HEMOGLOBIN 9.1 g/dL (12.0-15.5); LYMPHOCYTES % (AUTO) 11.4 % (13-45); MEAN CORPUSCULAR HEMOGLOBIN 28.7 pg (27.0-33.4); MEAN CORPUSCULAR HGB CONC 33.2 g/dL (32.0-36.0); MEAN CORPUSCULAR VOLUME 86 fl (80-97); MONOCYTES % (AUTO) 7.2 % (3-13); PLATELET COUNT 410 10^3/uL (150-450); RED BLOOD COUNT 3.16 10^6/uL (3.72-5.28); RED CELL DISTRIBUTION WIDTH 15.8 % (11.5-14.0); SEGMENTED NEUTROPHILS % (AUTO) 79.1 % (42-78); TOTAL CELLS COUNTED % (AUTO) 100 %
[2019-04-22 12:29] LABS: INTERNATIONAL RATION (INR) 1.15; PROTHROMBIN TIME 14.7 SEC (11.4-15.4)
[2019-04-22 12:30] LABS: ALBUMIN 3.8 g/dL (3.5-5.0); ALKALINE PHOSPHATASE 53 U/L (38-126); ANION GAP 12 (5-19); ASPARTATE AMINO TRANSFERASE 21 U/L (14-36); BILIRUBIN,DIRECT 0.2 mg/dL (0.0-0.4); BILIRUBIN,TOTAL 0.4 mg/dL (0.2-1.3); BLOOD UREA NITROGEN 44 mg/dL (7-20); CALCIUM 9.6 mg/dL (8.4-10.2); CARBON DIOXIDE 27 mmol/L (22-30); CHLORIDE 104 mmol/L (98-107); GLUCOSE 127 mg/dL (75-110); PARTIAL THROMBOPLASTIN TIME 36.4 SEC (23.5-35.8); TOTAL PROTEIN 7.2 g/dL (6.3-8.2)
--- NOTE | 2019-04-22 12:51 | ER Document Report ---
ED General - General Chief Complaint: Rectal Bleeding Stated Complaint: POSSIBLE BLEEDING FROM RECTUM/GENITAL AREA Time Seen by Provider: 04/22/19 11:24 Primary Care Provider: CAROL ANN ACHARYA MD [Primary Care Provider] - Follow up as needed TRAVEL OUTSIDE OF THE [place] IN LAST 30 DAYS: No - Related Data Allergies/Adverse Reactions: No Known Allergies Allergy (Verified 04/22/19 11:24) Past Medical History - General Information source: Relative - Social History Smoking Status: Never Smoker Family History: None Patient has suicidal ideation: No Patient has homicidal ideation: No - Past Medical History Cardiac Medical History: Reports: Hx Atrial Fibrillation, Hx Congestive Heart Failure, Hx Coronary Artery Disease, Hx Heart Attack, Hx Hypercholesterolemia, Hx Hypertension Pulmonary Medical History: Denies: Hx Asthma, Hx Bronchitis, Hx COPD, Hx Pneumonia, Hx Tuberculosis Neurological Medical History: Reports: Hx Cerebrovascular Accident - 2006,2007, Hx Seizures - 10 years ago Endocrine Medical History: Reports: Hx Diabetes Mellitus Type 1, Hx Diabetes Mellitus Type 2 Renal/ Medical History: Denies: Hx Peritoneal Dialysis Musculoskeletal Medical History: Denies Hx Arthritis Psychiatric Medical History: Reports: Hx Depression Past Surgical History: Reports: Hx Cardiac Catheterization - stent 2003. Denies: Hx Hysterectomy, Hx Pacemaker - Immunizations Hx Diphtheria, Pertussis, Tetanus Vaccination: Yes Hx Pneumococcal Vaccination: 05/01/09 Physical Exam - Vital signs Vitals: Temp Pulse Resp BP Pulse Ox 98.3 F 88 16 164/71 H 100 04/22/19 11:27 04/22/19 11:27 04/22/19 11:27 04/22/19 11:27 04/22/19 11:27 - Notes Notes: Patient is to the emergency department with 3 episodes of possible rectal bleeding over the past week. First 2 episodes they just noticed some spotting in her underwear. But today they said they noticed amount of bright red blood. The patient is not had any no complaints of abdominal pain nausea or vomiting. Is been no fevers or dysuria last bowel movement was 1 to 2 days ago and was brown in color. No previous history of hemorrhoids. They do report patient had a fever about a week ago that resolved. Has been decreased but she is tolerating liquids Past medical history includes hypertension elevated cholesterol coronary artery disease with a stent CHF and atrial fibrillation as well as chronic kidney disease and dementia. CVA with right-sided weakness and currently bedridden family has recently placed the patient hospice because of her multiple medical problems Social history she does not smoke or drink at all Review of systems is limited because of the patient's mental status family is answer most of the questions. Patient denies any chest pain or abdominal pain at this time Medications patient is currently on Eliquis PHYSICIAN EXAM -vital signs are noted triage note and note from triage reviewed GENERAL: Well-appearing, well-nourished and in _no acute distress HEAD: Atraumatic, normocephalic. EYES: Pupils equal round and reactive to light, extraocular movements intact, sclera anicteric, conjunctiva are normal. ENT: nares patent, oropharynx clear without exudates. Moist mucous membranes. NECK: supple without lymphadenopathy LUNGS: Breath sounds clear to auscultation bilaterally and equal. No wheezes rales or rhonchi. HEART: Regular rate and rhythm without murmurs ABDOMEN: Soft, nontender, normoactive bowel sounds. EXTREMITIES: No deformity, no edema. NEUROLOGICAL: Is awake she can tell me her name that she is in the hospital and the year. Speech is clear she got this hemiplegia on the right have good movement on the left PSYCH: Normal mood, normal affect. SKIN: Warm, Dry, stage III decubitus ulcer in the sacral area. There are some dried blood on the bandage no active bleeding. Rectal stool was obtained by nursing staff reported as brown and heme-negative. I did examine the rectal externally with nursing staff present there is no S of hemorrhoids or anal fissure. Pelvic exam was performed with nursing staff present. The external genitalia normal. There is appears to be some irritation around the urethra. With some tenderness in the area. There is no bleeding gross bleeding from the vault. Digital exam was limited because of pain but there is no blood on my exam finger at least at the opening of the introitus BACK-nontender in the midline Differential diagnosis includes UTI cystitis atrophic vaginitis diverticulitis Course - Re-evaluation Re-evalutation: 04/22/19 16:42 ED patient is remained stable they attempted MESHA cath without any urine so she was given a 500 cc bolus cath does show some hematuria Medical decision making patient presents with bleeding on unclear source. Stool was heme-negative. She had no external lesions on her rectum. No blood in the vaginal vault on brief exam. Does have irritation of the urethra and evidence of urinary tract infection which I think is the most likely source. The discussion with family members. There is been some conflict is 1 family member wants testing done the other one does not. I did discuss the findings with them at this time I think the most likely the urine. Commended that we treat her UTI and then still has some bleeding proceed with further evaluation is a comfortable with that. They do understand that further evaluation would include a pelvic exam which would be very limited because of patient's previous stroke and she is not fully cooperative. Plan at this time will go and treat her with Omnicef and has been advised to make sure she drinks plenty of fluids and follow-up with her family doctor in 3 to 5 days Patient 1 Dictation was done using voice recognition software. There may be some grammatical errors which are unintentional I discussed results of laboratory findings and diagnostic test with patient/family. The treatment plan was explained and I reviewed the discharge instructions with them. Questions were answered. The patient/family verbalizes understanding - Vital Signs Vital signs: Temp Pulse Resp BP Pulse Ox 98.3 F 88 16 164/71 H 100 04/22/19 11:27 04/22/19 11:27 04/22/19 11:27 04/22/19 11:27 04/22/19 11:27 - Laboratory Result Diagrams: 04/22/19 11:45 04/22/19 11:45 Laboratory results interpreted by me: 04/22/19 04/22/19 04/22/19 11:45 11:45 11:45 RBC 3.16 L Hgb 9.1 L Hct 27.3 L RDW 15.8 H Lymph % (Auto) 11.4 L Seg Neutrophils % 79.1 H APTT 36.4 H BUN 44 H Creatinine 2.41 H Est GFR ( Amer) 24 L Est GFR (MDRD) Non-Af 19 L Glucose 127 H Urine Protein Urine Blood Ur Leukocyte Esterase 04/22/19 14:12 RBC Hgb Hct RDW Lymph % (Auto) Seg Neutrophils % APTT BUN Creatinine Est GFR ( Amer) Est GFR (MDRD) Non-Af Glucose Urine Protein 100 H Urine Blood SMALL H Ur Leukocyte Esterase MODERATE H Discharge - Discharge Clinical Impression: Chronic kidney disease (CKD) Qualifiers: Chronic kidney disease stage: unspecified stage Qualified Code(s): N18.9 - Chronic kidney disease, unspecified UTI (urinary tract infection) Qualifiers: Urinary tract infection type: acute cystitis Disposition: HOME, SELF-CARE Instructions: Urinary Tract Infection ([facility]) Additional Instructions: Please review the discharge instructions, they will tell you about your disease/injury and what you need to return to the ED for Return to the ED if you feel worse or can follow-up with your family doctor Make sure patient drinks plenty of fluids Follow-up with your family doctor in 3 to 5 days Return if patient develops blood in her stools black stools or heavy vaginal bleeding Prescriptions: Cefdinir [Omnicef 250 mg/5 mL Suspension] 6 ml PO ASDIR PRN #50 ml PRN Reason: Referrals: CAROL ANN ACHARYA MD [Primary Care Provider] - Follow up as needed
[2019-04-22] MEDS ORDERED: NORMAL SALINE 500 ML IV ONE (13:47)
[2019-04-22 14:28] LABS: APPEARANCE,URINE CLEAR; BILIRUBIN,URINE NEGATIVE (NEGATIVE); COLOR,URINE YELLOW; GLUCOSE, URINE NEGATIVE (NEGATIVE); KETONES,URINE NEGATIVE (NEGATIVE); LEUKOCYTE ESTERASE,URINE MODERATE (NEGATIVE); NITRITE,URINE NEGATIVE (NEGATIVE); PROTEIN,URINE 100 mg/dL (NEGATIVE); URINE SPECIFIC GRAVITY 1.009; UROBILINOGEN,URINE NEGATIVE mg/dL (<2.0)
[2019-04-22 17:12] VITALS: BP 133/55
== END 2019-04-22 17:40 | disposition home or self-care (01) ==
LOC: ER 11:21
DX: N18.9 Chronic kidney disease, unspecified (principal); N30.00 Acute cystitis without hematuria; K62.5 Hemorrhage of anus and rectum; I50.9 Heart failure, unspecified; I25.10 Atherosclerotic heart disease of native coronary artery without angina pectoris; I25.2 Old myocardial infarction; I11.0 Hypertensive heart disease with heart failure; E11.9 Type 2 diabetes mellitus without complications
CPT/HCPCS: 99283; 96360; 36415; 85025; 85610; 85730; 80053; 81001; J7040